=== PATIENT | male | born 1960 | race Caucasian/White ===

== ENCOUNTER → 2019-03-06 | Outpatient (CLI) | payer MEDICARE, BC ==
[2019-03-06 20:19] LABS: LDL Cholesterol,Calculated 85.4 mg/dL (0.0-131.0); VLDL Calculation 37.6 mg/dL (5.00-40.00)
== END | disposition home or self-care (01) ==
LOC: LABWHC1 10:17
PROVIDERS: ATTEND Nurse Practitioner Adult Health
DX: E78.2 Mixed hyperlipidemia (principal)
CPT/HCPCS: 36415; 80061; 84450; 84460

== ENCOUNTER → 2019-10-01 | Outpatient (CLI) | payer MEDICARE, BC ==
--- NOTE | 2019-10-01 14:11 | MR ---
EXAMINATION TYPE: MR abdomen wo/w con DATE OF EXAM: 10/01/2019 COMPARISON: Outside report dated August 16, 2019. HISTORY: Complicated cysts of the kidneys seen on the CT abdomen done the liver. Hospital. CONTRAST: Standard multiplanar, multisequence MRI departmental protocol utilizing 10 mL intravenous Gadavist ga dolinium contrast. FINDINGS: Emanating from the right lower pole the kidney there is a 1.4 x 1.9 cm T1 precontrast hyperintense le larisa without significant enhancement on early or delayed phases. There is minimal motion artifact thr ough this lesion on precontrast T1 weighted images. There are additional scattered cortical bilateral T2 hyperintense nonenhancing renal cysts, the largest on the left measuring 1.5 cm the largest on th e right measuring 1.0 cm. The known nephrolithiasis is better seen on CT. No hydronephrosis of either kidney. The liver is homogeneous in enhancement other than a small linear arterial portal shunt in the left h epatic lobe there is no intrahepatic biliary ductal dilatation. Mild diffuse signal dropout is seen o n out of phase imaging indicating mild degree hepatic steatosis. Gallbladder is unremarkable without cholelithiasis. The spleen, adrenal glands, and pancreas are of unremarkable enhancement and morpholo gy. There is no dilated large or small bowel. No adenopathy. Lung bases are well aerated. Degenerativ e disc disease is seen of the spine. IMPRESSION: 1. The indeterminate right renal lesion on the prior outside report of August 16, 2019 appears as a benign 1.9 cm lower pole hemorrhagic and/or proteinaceous cyst. There is minimal internal complexity on the T1 precontrast images, appearing as a probable motion artifact. Precautionary 6 month follow-u p ultrasound is recommended to ensure no interval growth. 2. Mild degree hepatic steatosis.
== END | disposition home or self-care (01) ==
LOC: RADMRIMAIN 11:55
PROVIDERS: ATTEND Emergency Medicine
DX: K76.0 Fatty (change of) liver, not elsewhere classified (principal)
CPT/HCPCS: 74183; A9585

== ENCOUNTER 2020-11-11 08:34 | Day surgery (SDC) | payer BC, MEDICARE ==
[2020-10-13 14:55] VITALS: BMI 28.7
--- NOTE | 2020-11-11 07:44 | P.GSHP ---
History of Present Illness H&P Date: 11/11/20 CHIEF COMPLAINT: Colon screen HISTORY OF PRESENT ILLNESS: The patient is a 60-year-old male who presents for colon screen. Lower endoscopy was offered for further evaluation and management. PAST MEDICAL HISTORY: Please see list. PAST SURGICAL HISTORY: Please see list. MEDICATIONS: Please see list. ALLERGIES: Please see list. SOCIAL HISTORY: No illicit drug use FAMILY HISTORY: No reports of Crohn disease or ulcerative colitis. REVIEW OF ORGAN SYSTEMS: CONSTITUTIONAL: No reports of fevers or chills. PHYSICAL EXAM: VITAL SIGNS: Stable GENERAL: Well-developed pleasant in no acute distress. HEENT: No scleral icterus. Extraocular movements grossly intact. Moist buccal mucosa. NECK: Supple without lymphadenopathy. CHEST: Unlabored respirations. Equal bilateral excursions. CARDIOVASCULAR: Regular rate and rhythm. Distal 2+ pulses. ABDOMEN: Soft, nontender, nondistended. MUSCULOSKELETAL: No clubbing, cyanosis, or edema. ASSESSMENT: 1. Colon screen. PLAN: 1. Recommend proceeding with a lower endoscopy Past Medical History Past Medical History: Atrial Fibrillation, Atrial Flutter, Coronary Artery Disease (CAD), Chest Pain / Angina, Hyperlipidemia, Myocardial Infarction ([place]), Osteoarthritis (OA), Skin Disorder, Sleep Apnea/CPAP/BIPAP Additional Past Medical History / Comment(s): "droopy eye", hx KIDNEY STONES, HEARING LOSS RT EAR.CHRONIC ,DDD,SPINAL STENOSIS, 3 HERNIATED DISC. no CPAP use d, ulcerative colitis, rash and flaky skin-cause unknown, Last Myocardial Infarction Date:: 2005 History of Any Multi-Drug Resistant Organisms: None Reported Past Surgical History: Adenoidectomy, Cardiac Ablation, Coronary Bypass/CABG, Heart Catheterization, Hernia Repair, Orthopedic Surgery, Tonsillectomy Additional Past Surgical History / Comment(s): cardiac ablation x 2, SX CHILD FOR UNDESCENDED TESTICLE, CABG-triple bypass, RT ROTATOR CUFF/TENDON SX, Umbilical hernia. rt cataract, rt eyelid surgery Past Anesthesia/Blood Transfusion Reactions: Previous Problems w/ Anesthesia Additional Past Anesthesia/Blood Transfusion Reaction / Comment(s): States "wakes up in surgery". Smoking Status: Former smoker - Past Family History Mother Family Medical History: Myocardial Infarction ([place]) Additional Family Medical History / Comment(s): AGE 62 FROM [place]... MOM'S DAD HAD [place] Father Family Medical History: Cancer Additional Family Medical History / Comment(s): . Sister(s) Family Medical History: Myocardial Infarction ([place]) Additional Family Medical History / Comment(s): AGE 43 FROM [place] Brother(s) Family Medical History: Coronary Artery Disease (CAD), CVA/TIA, Myocardial Infarction ([place]) Additional Family Medical History / Comment(s): AGE 42 HAD STROKE, AGE 45 HAD TRIPLE BYPASS Medications and Allergies Home Medications Medication Instructions Recorded Confirmed Type Atorvastatin [Lipitor] 80 mg PO HS 12/16/15 11/09/20 History HYDROcodone/APAP 10-325MG [[place] 1 tab PO Q6H PRN 12/16/15 11/09/20 History 10-325] Multivitamins, Thera [Multivitamin] 1 tab PO DAILY 09/19/16 11/09/20 History Aspirin [Adult Low Dose Aspirin EC] 81 mg PO DAILY 10/13/20 11/09/20 History Rivaroxaban [Xarelto] 20 mg PO DAILY 10/13/20 11/09/20 History Valsartan [Diovan] 40 mg PO QAM 10/13/20 11/09/20 History Amiodarone [Cordarone] 200 mg PO DAILY 11/09/20 11/09/20 History Fenofibrate Nanocrystallized 48 mg PO DAILY 11/09/20 11/09/20 History [Tricor] Metoprolol Succinate [Toprol XL] 50 mg PO BID 11/09/20 11/09/20 History Allergies Allergy/AdvReac Type Severity Reaction Status Date / Time morphine Allergy Rash/Hives/ Verified 11/09/20 10:34 ITCHING
[~2020-11-11 08:34] MED LIST: LACTATED RINGERS 1,000 ML IV SCH; LIDOCAINE 1% (10MG/ML) FOR IV START INTRADERMA PRN
[2020-11-11 09:02] VITALS: RESP 16; TEMP 97.8
[2020-11-11] MEDS ORDERED: MIDAZOLAM 2 MG/2 ML VIAL ONE (09:19)
[2020-11-11] MEDS ORDERED: LIDOCAINE 1% INJ 10MG/ML (20 ML MDV) ONE (09:19)
[2020-11-11] MEDS ORDERED: PROPOFOL 10 MG/ML 20 ML VIAL IV ONE (09:19)
--- NOTE | 2020-11-11 09:38 | P.PCN ---
Date of Procedure: 11/11/20 Description of Procedure: PREOPERATIVE DIAGNOSIS: Personal history colon polyps POSTOPERATIVE DIAGNOSIS: Sigmoid colon polyp OPERATION: Colonoscopy to the cecum, ileocecal valve and appendiceal orifice. Colonoscopy with cold forceps biopsy SURGEON: Yari Israel MD. ANESTHESIA: MAC. INDICATIONS: The patient is a 60-year-old male who presents for colonoscopy screening. Last colonoscopy less than 5 years ago with history of polyps. Benefits and risks were described and informed consent was obtained. DESCRIPTION OF PROCEDURE: The patient had undergone Suprep. He had been brought into the operating room and laid in the left lateral decubitus position. After adequate intravenous sedation, the rectum was examined with 2% lidocaine jelly. External hemorrhoids were encountered. The rectal tone was within normal limits. No lesions were palpated in the rectal vault. An Olympus colonoscope was advanced until the cecum, ileocecal valve and appendiceal orifice were clearly viewed. The prep was excellent. No scattered diverticulosis was encountered. A hyperplastic 3 mm polyp was removed using cold forceps biopsy of the sigmoid colon. No evidence of focal colitis was found. Retroflexion of the scope demonstrated grade 2 internal hemorrhoids without active bleeding or inflammation. The colon was desufflated. The patient had tolerated the procedure well. Withdrawal time was over 6 minutes. FINDINGS: Aronchick preparation quality scale 1 (1-5) Internal hemorrhoids, grade 2 External prolapsed hemorrhoids, grade 2 No arteriovenous malformations. A hyperplastic 3 mm polyp was removed using cold forceps biopsy of the sigmoid colon. No focal colitis. RECOMMENDATIONS: Lower endoscopy in 3 years, 2023 Plan - Discharge Summary Discharge Rx Participant: No New Discharge Prescriptions: Continue Atorvastatin [Lipitor] 80 mg PO HS HYDROcodone/APAP 10-325MG [[place] 10-325] 1 tab PO Q6H PRN PRN Reason: Pain Control Multivitamins, Thera [Multivitamin (formulary)] 1 tab PO DAILY Valsartan [Diovan] 40 mg PO QAM Rivaroxaban [Xarelto] 20 mg PO DAILY Aspirin [Adult Low Dose Aspirin EC] 81 mg PO DAILY Amiodarone [Cordarone] 200 mg PO DAILY Metoprolol Succinate [Toprol XL] 50 mg PO BID Fenofibrate Nanocrystallized [Tricor] 48 mg PO DAILY Discharge Medication List Atorvastatin [Lipitor] 80 mg PO HS 12/16/15 [History] HYDROcodone/APAP 10-325MG [[place] 10-325] 1 tab PO Q6H PRN 12/16/15 [History] Multivitamins, Thera [Multivitamin (formulary)] 1 tab PO DAILY 09/19/16 [History] Aspirin [Adult Low Dose Aspirin EC] 81 mg PO DAILY 10/13/20 [History] Rivaroxaban [Xarelto] 20 mg PO DAILY 10/13/20 [History] Valsartan [Diovan] 40 mg PO QAM 10/13/20 [History] Amiodarone [Cordarone] 200 mg PO DAILY 11/09/20 [History] Fenofibrate Nanocrystallized [Tricor] 48 mg PO DAILY 11/09/20 [History] Metoprolol Succinate [Toprol XL] 50 mg PO BID 11/09/20 [History] Follow up Appointment(s)/Referral(s): Yari Israel MD [STAFF PHYSICIAN] - As Needed Patient Instructions/Handouts: *Surgery [facility] - (Anesthesia) Endoscopy Discharge Instructions, Colorectal Polyps (DC) Activity/Diet/Wound Care/Special Instructions: RESUME BLOOD THINNER NOV 14 Repeat colonoscopy 5 years, 2025 Discharge Disposition: HOME SELF-CARE
[2020-11-11 10:01] VITALS: BP 114/62; PULSE 80
== END 2020-11-11 10:39 | disposition home or self-care (01) ==
LOC: ORWHC2ENDO 08:34
PROVIDERS: ATTEND Surgery Plastic and Reconstructive Surgery
DX: Z12.11 Encounter for screening for malignant neoplasm of colon (principal); D12.5 Benign neoplasm of sigmoid colon; K64.1 Second degree hemorrhoids; I48.91 Unspecified atrial fibrillation; I48.92 Unspecified atrial flutter; I25.10 Atherosclerotic heart disease of native coronary artery without angina pectoris; E78.5 Hyperlipidemia, unspecified; I25.2 Old myocardial infarction; M19.90 Unspecified osteoarthritis, unspecified site; F17.200 Nicotine dependence, unspecified, uncomplicated; I10 Essential (primary) hypertension; G47.33 Obstructive sleep apnea (adult) (pediatric); Z99.89 Dependence on other enabling machines and devices; Z87.442 Personal history of urinary calculi; H91.91 Unspecified hearing loss, right ear; K52.9 Noninfective gastroenteritis and colitis, unspecified; R21 Rash and other nonspecific skin eruption; Z95.1 Presence of aortocoronary bypass graft; Z90.89 Acquired absence of other organs; Z98.890 Other specified postprocedural states; Z98.41 Cataract extraction status, right eye; Z82.49 Family history of ischemic heart disease and other diseases of the circulatory system; Z80.9 Family history of malignant neoplasm, unspecified; Z82.3 Family history of stroke; Z79.82 Long term (current) use of aspirin; Z79.891 Long term (current) use of opiate analgesic; Z79.899 Other long term (current) drug therapy; Z88.5 Allergy status to narcotic agent
CPT/HCPCS: 88305; 45380; J2250; J2001; J2704

== ENCOUNTER 2020-12-01 06:37 | Day surgery (SDC) | payer MEDICARE ==
[~2020-12-01 06:37] MED LIST changes: -LACTATED RINGERS 1,000 ML IV SCH; -LIDOCAINE 1% (10MG/ML) FOR IV START INTRADERMA PRN; +SODIUM CHLORIDE 0.9% 1,000 ML IV SCH
[2020-12-01] MEDS ORDERED: PROPOFOL 10 MG/ML 20 ML VIAL IV ONE (07:46)
[2020-12-01] MEDS ORDERED: LIDOCAINE 1% INJ 10MG/ML (20 ML MDV) ONE (07:46)
[2020-12-01] MEDS ORDERED: BENZOCAINE SPRAY 1 CAN MUCOUS MEM ONE ×2 (07:50→07:59)
[2020-12-01] MEDS ORDERED: SODIUM CHLORIDE 0.9% 1,000 ML IV SCH (08:15)
[2020-12-01] MEDS ORDERED: RIVAROXABAN 20 MG TAB PO STA (08:17)
[2020-12-01 08:26] VITALS: TEMP 98
[2020-12-01] MEDS ORDERED: AMIODARONE 200 MG TAB PO SCH (09:00)
[2020-12-01] MEDS ORDERED: RIVAROXABAN 20 MG TAB PO SCH (09:00)
[2020-12-01] MEDS ORDERED: FENOFIBRATE NANOCRYSTALLIZED 48 MG PO SCH (09:00)
[2020-12-01] MEDS ORDERED: METOPROLOL SUCCINATE (ER) 50 MG TAB.ER.24H PO SCH (09:00)
[2020-12-01] MEDS ORDERED: ASPIRIN 81 MG PO SCH (09:00)
[2020-12-01] MEDS ORDERED: VALSARTAN 40 MG TAB PO SCH (09:00)
--- NOTE | 2020-12-01 09:05 | CE ---
CARDIAC ELECTROPHYSIOLOGY REPORT CARDIOVERSION PROCEDURE NOTE: PROCEDURE: Cardioversion. INDICATION: Atrial fibrillation. PROCEDURE: After explaining the procedure to the patient, its risks and the complications, after obtaining sedated state and performing transesophageal echocardiogram, a synchronized biphasic cardioversion using 200 joules and subsequently 250 joules was successful in restoring normal sinus rhythm. There was no immediate complication. YASIR / DANYELLN: [id number] /
[2020-12-01 09:39] VITALS: RESP 16
[2020-12-01 09:49] VITALS: BP 110/62; PULSE 61
[2020-12-01] MEDS ORDERED: HYDROcodone/APAP 10-325MG 1 EACH TAB PO ONE (09:57)
[2020-12-01] MEDS ORDERED: HYDROcodone/APAP 10-325MG 1 EACH TAB ONE (10:05)
--- NOTE | 2020-12-01 10:11 | ECHOT ---
TRANSESOPHAGEAL ECHOCARDIOGRAM INDICATION: Evaluation left atrial appendage. PROCEDURE: After explaining the procedure to the patient, its risks and the complications, blood pressure, heart rate, O2 saturation were monitored. The throat was sprayed with Cetacaine. He received sedation per the anesthesia department. The probe was introduced in the esophagus without difficulty. Images were obtained. Following that, the probe was removed. There was no immediate complication. FINDINGS: Left atrial size is dilated. Left atrial appendage is normal. Left ventricular size and systolic function normal. The aortic valve, mitral valve and tricuspid valve are normal. Descending thoracic aorta appears to be normal. Contrast bubble study revealed no evidence of shunting across the interatrial septum. No pericardial effusion was noted. Doppler pulse and color Doppler obtained and revealed moderate severe mitral with multiple jets and moderate tricuspid regurgitation. There was no shunting by color Doppler study. CONCLUSION: 1. Dilated left atrium with normal appearance of left atrial appendage. 2. Normal left ventricular size and systolic function. 3. Moderate severe mitral regurgitation with multiple jets. 4. Moderate tricuspid regurgitation. 5. Normal appearance of the descending thoracic aorta. 6. No shunting across the interatrial septum. MMODL / IJN: [id number] /
[2020-12-01] MEDS ORDERED: ATORVASTATIN 80 MG TAB PO SCH (21:00)
== END 2020-12-01 10:08 | disposition home or self-care (01) ==
LOC: CATHCVL 06:37
PROVIDERS: ATTEND Internal Medicine Interventional Cardiology
DX: I48.11 Longstanding persistent atrial fibrillation (principal); I08.1 Rheumatic disorders of both mitral and tricuspid valves; I10 Essential (primary) hypertension; E78.2 Mixed hyperlipidemia; F17.210 Nicotine dependence, cigarettes, uncomplicated; E11.9 Type 2 diabetes mellitus without complications; E66.9 Obesity, unspecified; R60.0 Localized edema; I25.2 Old myocardial infarction; G47.33 Obstructive sleep apnea (adult) (pediatric); M48.00 Spinal stenosis, site unspecified; Z95.1 Presence of aortocoronary bypass graft; Z79.899 Other long term (current) drug therapy; Z79.82 Long term (current) use of aspirin; Z79.01 Long term (current) use of anticoagulants; Z88.5 Allergy status to narcotic agent; Z68.30 Body mass index [BMI] 30.0-30.9, adult; Z99.89 Dependence on other enabling machines and devices; Z79.891 Long term (current) use of opiate analgesic; Z98.890 Other specified postprocedural states; Z90.89 Acquired absence of other organs; Z82.49 Family history of ischemic heart disease and other diseases of the circulatory system
CPT/HCPCS: 93312; 93320; 93325; 92960; J2001; J2704

== ENCOUNTER 2021-01-04 08:55 | Inpatient (IN) | payer MEDICARE ==
[2021-01-04] MEDS ORDERED: METOPROLOL SUCCINATE (ER) 50 MG TAB.ER.24H PO STA (17:24)
[2021-01-04] MEDS ORDERED: DOFETILIDE 250 MCG CAP PO STA (17:28)
[2021-01-04] MEDS: SPIRONOLACTONE 25 MG TAB PO SCH (18:06)
[2021-01-04] MEDS: MAGNESIUM OXIDE 400 MG TAB PO SCH (18:06)
[2021-01-04] MEDS: RIVAROXABAN 20 MG TAB PO SCH (18:06)
[2021-01-04 19:06] LABS: ALT 41 U/L (4-49); AST 39 U/L (17-59); African American GFR (CKD) >90 (>60 ml/min/1.73 sqM); Albumin 3.9 g/dL (3.5-5.0); Alkaline Phosphatase 40 U/L (38-126); Anion Gap 7 mmol/L; Blood Urea Nitrogen 21 mg/dL (9-20); Calcium 9.5 mg/dL (8.4-10.2); Carbon Dioxide 25 mmol/L (22-30); Chloride 108 mmol/L (98-107); Glucose 83 mg/dL (74-99); Magnesium 1.9 mg/dL (1.6-2.3); Non-African American GFR(CKD) 80 (>60 ml/min/1.73 sqM); Potassium 4.5 mmol/L (3.5-5.1); Sodium 140 mmol/L (137-145); Total Bilirubin 0.4 mg/dL (0.2-1.3); Total Protein 6.6 g/dL (6.3-8.2)
[2021-01-05] MEDS ORDERED: DOFETILIDE 250 MCG CAP PO ONE (06:00)
[2021-01-05 07:53] LABS: African American GFR (CKD) >90 (>60 ml/min/1.73 sqM); Anion Gap 6 mmol/L; Blood Urea Nitrogen 21 mg/dL (9-20); Calcium 9.3 mg/dL (8.4-10.2); Carbon Dioxide 21 mmol/L (22-30); Chloride 111 mmol/L (98-107); Glucose 94 mg/dL (74-99); Non-African American GFR(CKD) 87 (>60 ml/min/1.73 sqM); Potassium 4.4 mmol/L (3.5-5.1); Sodium 138 mmol/L (137-145)
[2021-01-05] MEDS ORDERED: METOPROLOL SUCCINATE (ER) 50 MG TAB.ER.24H PO SCH (09:00)
[2021-01-05] MEDS: MAGNESIUM OXIDE 400 MG TAB PO SCH (09:32)
[2021-01-05] MEDS: METOPROLOL SUCCINATE (ER) 25 MG TAB.ER.24H PO SCH (09:32)
[2021-01-05] MEDS: FENOFIBRATE 160 MG TAB PO SCH (09:32)
[2021-01-05] MEDS: ATORVASTATIN 80 MG TAB PO SCH (09:32)
[2021-01-05] MEDS: ASPIRIN 81 MG PO SCH (09:32)
[2021-01-05] MEDS: SPIRONOLACTONE 25 MG TAB PO SCH (09:33)
[2021-01-05] MEDS: VALSARTAN 40 MG TAB PO SCH (09:33)
--- NOTE | 2021-01-05 13:22 | P.PN ---
Subjective This is a pleasant 60-year-old male who is brought into the hospital for dofetilide initiation. He has a history of persistent atrial fibrillation that has failed electrical cardioversion as well as amiodarone therapy. He is significantly symptomatic and cannot lay flat while in atrial fibrillation. He is seen and examined resting comfortably in no acute distress. He continues to be in atrial fibrillation at this time with no evidence of organization of his rhythm. Blood pressure 132/77 heart rate 54 afebrile maintaining oxygen saturation on room air. Laboratory data reviewed, sodium 138, potassium 4.4 and creatinine 0.94. GENERAL: Well-appearing, well-nourished and in no acute distress. NECK: Supple without JVD or thyromegaly. LUNGS: Breath sounds clear to auscultation bilaterally. Respiration equal and unlabored. No wheezes, rales or rhonchi. HEART: Irregular rate and rhythm with systolic ejection murmur at the base, no rubs or gallops. S1 and S2 heard. EXTREMITIES: Normal range of motion, no edema. No clubbing or cyanosis. Peripheral pulses intact. ASSESSMENT Chronic persistent atrial fibrillation PLAN Increase dofetilide to 500 mg BID, first dose tonight. Obtain EKG 3 hours after dofetilide administration. Repeat BMP in the morning. Ongoing telemetry monitoring. Obtain EKG if he converts to sinus mechanism. Plan for cardioversion if he does not convert before that time. Nurse Practitioner note has been reviewed, I agree with a documented findings and plan of care. Patient was seen and examined. Objective - Vital Signs Vital signs: Vital Signs Temp 98.1 F 01/05/21 11:12 Pulse 54 L 01/05/21 11:12 Resp 16 01/05/21 11:12 BP 132/77 01/05/21 11:12 Pulse Ox 98 01/05/21 11:12 Intake & Output 01/04/21 01/05/21 01/05/21 18:59 06:59 18:59 Intake Total 540 240 Balance 540 240 Weight 99.8 kg 98 kg Intake: Oral 540 240 Other: Voiding Method Toilet Toilet # Voids 1 - Labs CBC & Chem 7: 01/05/21 06:32 Labs: Abnormal Lab Results - Last 24 Hours (Table) 01/04/21 01/05/21 Range/Units 17:52 06:32 Chloride 108 H 111 H (98-107) mmol/L Carbon Dioxide 21 L (22-30) mmol/L BUN 21 H 21 H (9-20) mg/dL
[2021-01-05] MEDS: RIVAROXABAN 20 MG TAB PO SCH (17:57)
[2021-01-05] MEDS: DOFETILIDE 500 MCG CAP PO SCH (17:57)
[2021-01-06] MEDS ORDERED: MAGNESIUM SULFATE-D5W PMX 1 GM in DEXTROSE/WATER 1 100ML.BAG IVPB ONE (03:15)
[2021-01-06] MEDS: DOFETILIDE 500 MCG CAP PO SCH ×2 (06:05→18:02)
[2021-01-06] MEDS: ASPIRIN 81 MG PO SCH (08:44)
[2021-01-06] MEDS: SPIRONOLACTONE 25 MG TAB PO SCH (08:45)
[2021-01-06] MEDS: FENOFIBRATE 160 MG TAB PO SCH (08:45)
[2021-01-06] MEDS: MAGNESIUM OXIDE 400 MG TAB PO SCH (08:45)
[2021-01-06] MEDS: ATORVASTATIN 80 MG TAB PO SCH (08:45)
[2021-01-06] MEDS: VALSARTAN 40 MG TAB PO SCH (08:45)
[2021-01-06] MEDS: METOPROLOL SUCCINATE (ER) 25 MG TAB.ER.24H PO SCH (08:45)
[2021-01-06 10:25] LABS: African American GFR (CKD) >90 (>60 ml/min/1.73 sqM); Anion Gap 7 mmol/L; Blood Urea Nitrogen 21 mg/dL (9-20); Calcium 9.6 mg/dL (8.4-10.2); Carbon Dioxide 26 mmol/L (22-30); Chloride 107 mmol/L (98-107); Glucose 122 mg/dL (74-99); Non-African American GFR(CKD) 81 (>60 ml/min/1.73 sqM); Potassium 4.4 mmol/L (3.5-5.1); Sodium 140 mmol/L (137-145)
--- NOTE | 2021-01-06 12:29 | P.PN ---
Progress Note - Text Patient underwent dofetilide 500 g twice daily Absolute QT interval of about 480-490 ms Minimal organization of atrial fibrillation on dofetilide Mildly bradycardic in the dose of beta blockers has been reduced Significantly dilated left atrium Potassium 4.4, magnesium 1.9, BUN and creatinine stable at 21 and 1.0 Plan Electrical cardioversion tomorrow Continue monitoring the QT intervals on dofetilide
[2021-01-06] MEDS: RIVAROXABAN 20 MG TAB PO SCH (18:02)
[2021-01-07] MEDS: DOFETILIDE 500 MCG CAP PO SCH ×2 (05:59→17:59)
[2021-01-07] MEDS ORDERED: SODIUM CHLORIDE 0.9% 1,000 ML IV SCH (06:00)
[2021-01-07] MEDS: ASPIRIN 81 MG PO SCH (08:44)
[2021-01-07] MEDS: MAGNESIUM OXIDE 400 MG TAB PO SCH (08:44)
[2021-01-07] MEDS: FENOFIBRATE 160 MG TAB PO SCH (08:44)
[2021-01-07] MEDS: SPIRONOLACTONE 25 MG TAB PO SCH (08:45)
[2021-01-07] MEDS: VALSARTAN 40 MG TAB PO SCH (08:45)
[2021-01-07] MEDS: ATORVASTATIN 80 MG TAB PO SCH (08:45)
[2021-01-07] MEDS: METOPROLOL SUCCINATE (ER) 25 MG TAB.ER.24H PO SCH (08:45)
[2021-01-07 10:30] LABS: African American GFR (CKD) >90 (>60 ml/min/1.73 sqM); Anion Gap 6 mmol/L; Blood Urea Nitrogen 22 mg/dL (9-20); Calcium 9.6 mg/dL (8.4-10.2); Carbon Dioxide 23 mmol/L (22-30); Chloride 108 mmol/L (98-107); Glucose 87 mg/dL (74-99); Magnesium 1.9 mg/dL (1.6-2.3); Non-African American GFR(CKD) 89 (>60 ml/min/1.73 sqM); Potassium 4.7 mmol/L (3.5-5.1); Sodium 137 mmol/L (137-145)
--- NOTE | 2021-01-07 14:26 | P.PN ---
Subjective This is a pleasant 60-year-old male who is brought into the hospital for dofetilide initiation. He has a history of persistent atrial fibrillation that has failed electrical cardioversion as well as amiodarone therapy. He is significantly symptomatic and cannot lay flat while in atrial fibrillation. He is seen and examined resting comfortably in no acute distress. He continues to be in atrial fibrillation at this time with no evidence of organization of his rhythm. Blood pressure 132/77 heart rate 54 afebrile maintaining oxygen saturation on room air. Laboratory data reviewed, sodium 138, potassium 4.4 and creatinine 0.94. 01/07/2021 Patient was seen and examined resting comfortably sitting up in the recliner in no acute distress. Yesterday he converted to sinus mechanism. EKG is reviewed and his QT interval is approximately 430ms. Blood pressure 101/63 heart rate 67 afebrile maintaining oxygen saturation on room air. Laboratory data reviewed, sodium 138, potassium 4.7, creatinine 0.92 and magnesium 1.9. GENERAL: Well-appearing, well-nourished and in no acute distress. NECK: Supple without JVD or thyromegaly. LUNGS: Breath sounds clear to auscultation bilaterally. Respiration equal and unlabored. No wheezes, rales or rhonchi. HEART: Regular rate and rhythm with systolic ejection murmur at the base, no rubs or gallops. S1 and S2 heard. EXTREMITIES: Normal range of motion, no edema. No clubbing or cyanosis. Peripheral pulses intact. ASSESSMENT Chronic persistent atrial fibrillation, currently maintaining sinus mechanism PLAN Continue dofetilide 500 mg twice a day. Obtain EKG 3 hours after dofetilide administration. Repeat BMP in the morning. Ongoing telemetry monitoring. Expect discharge tomorrow if he continues to maintain sinus mechanism and tolerate dofetilide. Nurse Practitioner note has been reviewed, I agree with a documented findings and plan of care. Patient was seen and examined. Objective - Vital Signs Vital signs: Vital Signs Temp 96.7 F L 01/07/21 13:07 Pulse 67 01/07/21 13:07 Resp 12 01/07/21 13:07 BP 101/63 01/07/21 08:40 Pulse Ox 96 01/07/21 13:07 Intake & Output 01/06/21 01/07/21 01/07/21 18:59 06:59 18:59 Intake Total 300 Balance 300 Weight 93.36 kg 97 kg Intake: Oral 300 Other: Voiding Method Toilet Toilet Toilet # Voids 2 1 2 - Labs CBC & Chem 7: 01/07/21 08:55 Labs: Abnormal Lab Results - Last 24 Hours (Table) 01/07/21 Range/Units 08:55 Chloride 108 H (98-107) mmol/L BUN 22 H (9-20) mg/dL
[2021-01-07] MEDS: RIVAROXABAN 20 MG TAB PO SCH (17:59)
[2021-01-08] MEDS: DOFETILIDE 500 MCG CAP PO SCH (06:19)
[2021-01-08] MEDS: FENOFIBRATE 160 MG TAB PO SCH (09:19)
[2021-01-08] MEDS: ATORVASTATIN 80 MG TAB PO SCH (09:19)
[2021-01-08] MEDS: ASPIRIN 81 MG PO SCH (09:19)
[2021-01-08] MEDS: MAGNESIUM OXIDE 400 MG TAB PO SCH (09:19)
[2021-01-08] MEDS: METOPROLOL SUCCINATE (ER) 25 MG TAB.ER.24H PO SCH (09:19)
[2021-01-08] MEDS: SPIRONOLACTONE 25 MG TAB PO SCH (09:19)
[2021-01-08] MEDS: VALSARTAN 40 MG TAB PO SCH (09:20)
[2021-01-08 09:25] LABS: Calcium 9.9 mg/dL (8.4-10.2); Magnesium 1.8 mg/dL (1.6-2.3); Potassium 5.2 mmol/L (3.5-5.1)
[2021-01-08 09:35] VITALS: BP 131/74; RESP 16; TEMP 98.6
[2021-01-08 10:46] VITALS: PULSE 54
--- NOTE | 2021-01-08 12:57 | P.DS ---
Providers Date of admission: 01/04/21 16:01 Attending physician: Victor M Ashley Primary care physician: Hema Gomez Assessment: Please see full dictation by the nurse practitioner This is's discharge summary. Patient has persistent atrial fibrillation with a significantly dilated left atrium of about 6 cm After detailed discussion was brought in for initiation of dofetilide The first start with 250 g twice daily and after 2 doses increased to 500 g twice daily A few doses later he chemically cardioverted on 500 g twice daily to sinus rhythm His absolute QT interval is around 460 ms and has stayed stable between 442 460 ms He has not had any ventricular arrhythmias The dose of beta blockers was reduced to 25 mg by mouth daily. He had nighttime pauses and daytime bradycardia in the 50s while in atrial fibrillation In sinus rhythm he feels he is able to walk a longer distance feels a lot more comfortable less short of breath with more energy He's been walking around in the hallway and he can feel the difference Blood pressures in the normal range heart rates in the 50s and 60s during sinus rhythm Sounds are clear lungs are clear no rhonchi no crackles No murmurs no gallops no rub Abdomen soft Extremities warm No JVD Impression Symptomatic persistent atrial fibrillation despite adequate rate control Significantly enlarged left atrium of 6 cm Successful chemical cardioversion with 500 g of dofetilide as an inpatient Absolute QT interval remained stable between 4 4460 ms Electrolytes are normal BUN and creatinine is stable and normal Plan Add a detailed discussion with him and his . A 30 minute education was given by myself for dofetilide use Does and don'ts were explained very carefully Drug interactions, rule out renal function, rolloff hypokalemia and hypomagnesemia was discussed in detail a wrist identifier was recommended He will see Dr. Rush in about 2-3 weeks I will see him again in about 4 months A BMP and magnesium will be done prior to that Dofetilide was sent to his pharmacy and he received a 1 week supply New medications include spironolactone and magnesium oxide The dose of beta blockers has been reduced to metoprolol succinate 25 g by mouth daily Anticoagulation continues lifelong Other diagnoses continue unchanged He is not on any medications that would have a significant interaction with dofetilide Patient Condition at Discharge: Stable Plan - Discharge Summary Discharge Rx Participant: Yes New Discharge Prescriptions: New Dofetilide [Tikosyn] 500 mcg PO Q12HR@0600,1800 #180 cap Spironolactone [Aldactone] 25 mg PO DAILY #90 tab Magnesium Oxide [Mag-Ox] 400 mg PO DAILY #90 tab Metoprolol Succinate (ER) [Toprol XL] 25 mg PO DAILY #90 tab.er.24h Continue Atorvastatin [Lipitor] 80 mg PO HS HYDROcodone/APAP 10-325MG [[place] 10-325] 1 tab PO Q6H PRN PRN Reason: Pain Control Multivitamins, Thera [Multivitamin (formulary)] 1 tab PO DAILY Rivaroxaban [Xarelto] 20 mg PO HS Aspirin [Adult Low Dose Aspirin EC] 81 mg PO DAILY Zinc 50 mg PO DAILY Fenofibrate [Lofibra] 160 mg PO DAILY Valsartan 80 mg PO DAILY Econazole 1% Cream [Spectazole] 1 applic TOPICAL BID PRN PRN Reason: Rash Vitamin B Complex W/C 1 tab PO DAILY Clotrimazole [Clotrimazole AF] 1 applic TOPICAL BID PRN PRN Reason: Rash Discontinued Amiodarone [Cordarone] 200 mg PO DAILY Metoprolol Succinate [Toprol XL] 50 mg PO BID Magnesium Oxide [[place]] 500 mg PO DAILY Discharge Medication List Atorvastatin [Lipitor] 80 mg PO HS 12/16/15 [History] HYDROcodone/APAP 10-325MG [[place] 10-325] 1 tab PO Q6H PRN 12/16/15 [History] Multivitamins, Thera [Multivitamin (formulary)] 1 tab PO DAILY 09/19/16 [History] Aspirin [Adult Low Dose Aspirin EC] 81 mg PO DAILY 10/13/20 [History] Rivaroxaban [Xarelto] 20 mg PO HS 10/13/20 [History] Clotrimazole [Clotrimazole AF] 1 applic TOPICAL BID PRN 01/04/21 [History] Econazole 1% Cream [Spectazole] 1 applic TOPICAL BID PRN 01/04/21 [History] Fenofibrate [Lofibra] 160 mg PO DAILY 01/04/21 [History] Valsartan 80 mg PO DAILY 01/04/21 [History] Vitamin B Complex W/C 1 tab PO DAILY 01/04/21 [History] Zinc 50 mg PO DAILY 01/04/21 [History] Dofetilide [Tikosyn] 500 mcg PO Q12HR@0600,1800 #180 cap 01/08/21 [Rx] Magnesium Oxide [Mag-Ox] 400 mg PO DAILY #90 tab 01/08/21 [Rx] Metoprolol Succinate (ER) [Toprol XL] 25 mg PO DAILY #90 tab.er.24h 01/08/21 [Rx] Spironolactone [Aldactone] 25 mg PO DAILY #90 tab 01/08/21 [Rx] Follow up Appointment(s)/Referral(s): Victor M Ashley MD [STAFF PHYSICIAN] - 6 Weeks (See Dr. Ashley in 3-4 months. Office to call with date and time.) Bailey Rush MD [STAFF PHYSICIAN] - 2 Weeks (Cardiology office to call patient with appointment date and time.) Patient Instructions/Handouts: A-fib (Atrial Fibrillation) (DC)
== END 2021-01-08 13:30 | disposition home or self-care (01) | DRG 310 ==
LOC: 3SCARD 16:01
PROVIDERS: ADMIT Internal Medicine Clinical Cardiac Electrophysiology; ATTEND Internal Medicine Clinical Cardiac Electrophysiology
DX: I48.19 Other persistent atrial fibrillation (principal)
CPT/HCPCS: 80048; 80053; 83735; 84443

== ENCOUNTER 2021-04-02 15:50 | Emergency (ER) | payer MEDICARE ==
[2021-04-02 15:59] VITALS: TEMP 98
[2021-04-02] MEDS ORDERED: SODIUM CHLORIDE 0.9% 1,000 ML IV STA (16:02)
[2021-04-02] MEDS ORDERED: ONDANSETRON 4 MG/2 ML VIAL IVP STA (16:02)
--- NOTE | 2021-04-02 16:26 | ED ---
General Adult HPI - General Chief complaint: Nausea/Vomiting/Diarrhea Stated complaint: AFIB, N/V/D, fever Time Seen by Provider: 04/02/21 16:01 Source: patient Mode of arrival: ambulatory Limitations: no limitations - History of Present Illness Initial comments: Dictation was produced using alike dictation software. please excuse any grammatical, word or spelling errors. Chief Complaint: 60-year-old male multiple comorbidities presents with fevers, diarrhea History of Present Illness: Is a 60-year-old male states that for the last several days he's had fever and diarrhea. States that his diarrhea is nonbilious not bloody. Denies any recent travel. No concerns of food poisoning or concerns of ingestion of still contaminated foods. States that he was seen to [facility] recently for A. fib and was discharged home. 2 hours ago patient had another bout of diarrhea brought him to come to the emergency department. States he has some pain in the superpubic area. He does have high fevers. No obvious sick contacts. He hasn't taken antidiarrhea medicines. Sternal hydrate himself at home. The ROS documented in this emergency department record has been reviewed and confirmed by me. Those systems with pertinent positive or negative responses have been documented in the HPI. All other systems are other negative and/or noncontributory. PHYSICAL EXAM: General Impression: Alert and oriented x3, not in acute distress HEENT: Normocephalic atraumatic, extra-ocular movements intact, pupils equal and reactive to light bilaterally, dry mucous membranes Cardiovascular: Heart regular rate and rhythm Chest: Able to complete full sentences, no retractions, no tachypnea Abdomen: abdomen soft, mild tenderness to the suprapubic space. No pain in McBurney's, not in his palpation of the left lower quadrant. Negative Rodriguez sign, non-distended, no organomegaly Musculoskeletal: Pulses present and equal in all extremities, no peripheral edema Motor: no focal deficits noted Neurological: CN II-XII grossly intact, no focal motor or sensory deficits noted Skin: Intact with no visualized rashes Psych: Normal affect and mood ED course: 60-year-old male presents emergency department for suprapubic abdominal pain and diarrhea. Vital signs upon arrival shows her to 110, rest of vital signs within acceptable limits. Medications reviewed. Laboratory evaluation obtained. CBC, metabolic panel obtained. There is mild non-gap acidosis likely secondary to phlebotomy lost. Troponin 0.040 which is around his baseline. Rest of his labs are unremarkable. There is concern for possible diverticulitis. Computed tomography scan of the abdomen and pelvis was ordered showing no acute processes. Patient reevaluated at bedside at 6 PM found to be stable medical condition. Repeat vitals are improved after IV hydr ation. Disposition options were discussed. He is agreeable for discharge. Told to follow-up with his primary care physician. Return precautions discussed. Patient likely suffered from gastroenteritis. EKG interpretation: Ventricular rate 103, sinus tachycardia, IA interval 164, QRS 90, QTC 492. No IA prolongation, no QTC prolongation, no ST or T-wave changes noted. EKG compared to 01/04/2021 showing no changes. Overall, this EKG is unremarkable - Related Data Home Medications Medication Instructions Recorded Confirmed Atorvastatin [Lipitor] 80 mg PO HS 12/16/15 01/04/21 HYDROcodone/APAP 10-325MG [[place] 1 tab PO Q6H PRN 12/16/15 01/04/21 10-325] Multivitamins, Thera [Multivitamin 1 tab PO DAILY 09/19/16 01/04/21 (formulary)] Aspirin [Adult Low Dose Aspirin EC] 81 mg PO DAILY 10/13/20 01/04/21 Rivaroxaban [Xarelto] 20 mg PO HS 10/13/20 01/04/21 Clotrimazole [Clotrimazole AF] 1 applic TOPICAL BID PRN 01/04/21 01/04/21 Econazole 1% Cream [Spectazole] 1 applic TOPICAL BID PRN 01/04/21 01/04/21 Fenofibrate [Lofibra] 160 mg PO DAILY 01/04/21 01/04/21 Vitamin B Complex W/C 1 tab PO DAILY 01/04/21 01/04/21 Zinc 50 mg PO DAILY 01/04/21 01/04/21 Previous Rx's Medication Instructions Recorded Dofetilide [Tikosyn] 500 mcg PO Q12HR@0600,1800 #180 cap 01/08/21 Magnesium Oxide [Mag-Ox] 400 mg PO DAILY #90 tab 01/08/21 Metoprolol Succinate (ER) [Toprol 25 mg PO DAILY #90 tab.er.24h 01/08/21 XL] Spironolactone [Aldactone] 12.5 mg PO DAILY tab 01/08/21 Valsartan 80 mg PO DAILY #90 tab 01/08/21 Allergies Allergy/AdvReac Type Severity Reaction Status Date / Time morphine Allergy Rash/Hives/ Verified 04/02/21 15:58 ITCHING Review of Systems ROS Statement: Those systems with pertinent positive or pertinent negative responses have been documented in the HPI. ROS Other: All systems not noted in ROS Statement are negative. Past Medical History Past Medical History: Atrial Fibrillation, Atrial Flutter, Coronary Artery Disease (CAD), Chest Pain / Angina, Hyperlipidemia, Myocardial Infarction ([place]), Osteoarthritis (OA), Skin Disorder, Sleep Apnea/CPAP/BIPAP Additional Past Medical History / Comment(s): "droopy eye", hx KIDNEY STONES, HEARING LOSS RT EAR.CHRONIC ,DDD,SPINAL STENOSIS, 3 HERNIATED DISC. no CPAP used, ulcerative colitis, rash and flaky skin-cause unknown, Last Myocardial Infarction Date:: 2005 History of Any Multi-Drug Resistant Organisms: None Reported Past Surgical History: Adenoidectomy, Cardiac Ablation, Coronary Bypass/CABG, Heart Catheterization, Hernia Repair, Orthopedic Surgery, Tonsillectomy Additional Past Surgical History / Comment(s): cardiac ablation x 2, SX CHILD FOR UNDESCENDED TESTICLE, CABG-triple bypass, RT ROTATOR CUFF/TENDON SX, Umbilical hernia. rt cataract, rt eyelid surgery Past Anesthesia/Blood Transfusion Reactions: Previous Problems w/ Anesthesia Additional Past Anesthesia/Blood Transfusion Reaction / Comment(s): States "wakes up in surgery". Past Psychological History: No Psychological Hx Reported Smoking Status: Former smoker Past Alcohol Use History: Rare Past Drug Use History: Marijuana - Past Family History Father Family Medical History: Cancer Additional Family Medical History / Comment(s): . Sister(s) Family Medical History: Myocardial Infarction ([place]) Additional Family Medical History / Comment(s): AGE 43 FROM [place] Brother(s) Family Medical History: Coronary Artery Disease (CAD), CVA/TIA, Myocardial Infarction ([place]) Additional Family Medical History / Comment(s): AGE 42 HAD STROKE, AGE 45 HAD TRIPLE BYPASS General Exam Limitations: no limitations Course Vital Signs 04/02/21 15:54 Temperature 98.0 F Pulse Rate 110 H Respiratory 18 Rate Blood Pressure 103/62 O2 Sat by Pulse 96 Oximetry Medical Decision Making - Lab Data Result diagrams: 04/02/21 16:33 04/02/21 16:33 Lab Results 04/02/21 04/02/21 04/02/21 Range/Units 16:33 16:33 16:33 WBC 5.4 (3.8-10.6) k/uL RBC 4.37 (4.30-5.90) m/uL Hgb 14.5 (13.0-17.5) gm/dL Hct 42.7 (39.0-53.0) % MCV 97.7 (80.0-100.0) fL MCH 33.2 (25.0-35.0) pg MCHC 33.9 (31.0-37.0) g/dL RDW 13.2 (11.5-15.5) % Plt Count 221 (150-450) k/uL MPV 6.8 Neutrophils % 78 % Lymphocytes % 9 % Monocytes % 10 % Eosinophils % 1 % Basophils % 1 % Neutrophils # 4.2 (1.3-7.7) k/uL Lymphocytes # 0.5 L (1.0-4.8) k/uL Monocytes # 0.6 (0-1.0) k/uL Eosinophils # 0.0 (0-0.7) k/uL Basophils # 0.0 (0-0.2) k/uL Sodium 134 L (137-145) mmol/L Potassium 5.9 H (3.5-5.1) mmol/L Chloride 107 (98-107) mmol/L Carbon Dioxide 17 L (22-30) mmol/L Anion Gap 10 mmol/L BUN 16 (9-20) mg/dL Creatinine 1.17 (0.66-1.25) mg/dL Est GFR (CKD-EPI)AfAm 77 (>60 ml/min/1.73 sqM) Est GFR (CKD-EPI)NonAf 66 (>60 ml/min/1.73 sqM) Glucose 162 H (74-99) mg/dL Calcium 9.3 (8.4-10.2) mg/dL Magnesium 2.0 (1.6-2.3) mg/dL Total Bilirubin 1.0 (0.2-1.3) mg/dL AST 77 H (17-59) U/L ALT 42 (4-49) U/L Alkaline Phosphatase 31 L (38-126) U/L Troponin I 0.040 H* (0.000-0.034) ng/mL Total Protein 6.8 (6.3-8.2) g/dL Albumin 3.8 (3.5-5.0) g/dL Disposition Clinical Impression: Diarrhea Disposition: HOME SELF-CARE Condition: Fair Instructions (If sedation given, give patient instructions): Acute Diarrhea (ED) Is patient prescribed a controlled substance at d/c from ED?: No Referrals: Hema Gomez MD [Primary Care Provider] - 1-2 days
[2021-04-02 16:57] LABS: Albumin 3.8 g/dL (3.5-5.0); Calcium 9.3 mg/dL (8.4-10.2); Potassium 5.9 mmol/L (3.5-5.1); Total Protein 6.8 g/dL (6.3-8.2)
[2021-04-02 16:58] LABS: Basophils % (A) 1 %; Eosinophils % (A) 1 %; HCT 42.7 % (39.0-53.0); HGB 14.5 gm/dL (13.0-17.5); Lymphocytes # (A) 0.5 k/uL (1.0-4.8); Lymphocytes % (A) 9 %; MCH 33.2 pg (25.0-35.0); MCHC 33.9 g/dL (31.0-37.0); MCV 97.7 fL (80.0-100.0); Mean Platelet Volume 6.8; Monocytes # (A) 0.6 k/uL (0-1.0); Monocytes % (A) 10 %; Neutrophils # (A) 4.2 k/uL (1.3-7.7); Neutrophils % (A) 78 %; Platelet Count 221 k/uL (150-450); RBC 4.37 m/uL (4.30-5.90); RDW 13.2 % (11.5-15.5); WBC 5.4 k/uL (3.8-10.6)
--- NOTE | 2021-04-02 17:55 | CT ---
EXAMINATION TYPE: CT abdomen pelvis w con DATE OF EXAM: 04/02/2021 COMPARISON: None HISTORY: Fever, nausea, vomiting and diarrhea. CT DLP: 1290.2 mGycm Automated exposure control for dose reduction was used. CONTRAST: Performed with IV Contrast, patient injected with 100 mL of Isovue 300. Images obtained from the diaphragm to the floor the pelvis with IV contrast. Lung bases are clear. There is no pleural effusion. Heart size is normal. There is no pericardial eff usion. Liver spleen pancreas stomach gallbladder appear normal. The bile ducts are not dilated. There is no adrenal mass. Kidneys show satisfactory contrast opacification. There is no hydronephrosi s. The ureters are not dilated. There is no retroperitoneal adenopathy. Appendix appears normal. The delayed images show normal renal excretion. There is 1 cm cortical cyst lower pole left kidney. There is 1.7 cm cortical cyst lower pole right kidney. The bladder distends smoothly. There is no inguinal hernia. There is no mesenteric edema. There is no ascites or free air. There is no bowel obstruction. There i s some fatty infiltration of the right colon consistent with lipomatosis. The lumbar vertebra show is very slight levoscoliosis. There is sclerotic changes at L1-2 and L2-3 wi th vacuum disc. There is no compression fracture. The bony pelvis is intact. The hip joints are intac t. Abdominal aorta is atheromatous. There is no hip dysplasia. IMPRESSION: Atherosclerotic vascular disease. Normal appendix. Colonic lipomatosis.
[2021-04-02 17:59] VITALS: BP 102/68; PULSE 90; RESP 16
== END 2021-04-02 18:10 | disposition home or self-care (01) ==
LOC: EC 15:50
DX: R19.7 Diarrhea, unspecified (principal); I48.91 Unspecified atrial fibrillation; I25.10 Atherosclerotic heart disease of native coronary artery without angina pectoris; E78.5 Hyperlipidemia, unspecified; I25.2 Old myocardial infarction; M19.90 Unspecified osteoarthritis, unspecified site; F12.90 Cannabis use, unspecified, uncomplicated; G47.33 Obstructive sleep apnea (adult) (pediatric); Z99.81 Dependence on supplemental oxygen; Z95.5 Presence of coronary angioplasty implant and graft; Z95.1 Presence of aortocoronary bypass graft; Z90.09 Acquired absence of other part of head and neck; Z87.891 Personal history of nicotine dependence; Z79.82 Long term (current) use of aspirin
CPT/HCPCS: 36415; 93005; 80053; 83735; 84484; 85025; 74177; 99284; 96360; Q9967

== ENCOUNTER 2021-04-04 13:02 | Observation (INO) | payer MEDICARE ==
[2021-04-04] MEDS ORDERED: SODIUM CHLORIDE 0.9% 1,000 ML IV STA ×2 (13:33)
[2021-04-04] MEDS ORDERED: PANTOPRAZOLE 40 MG/10 ML VIAL IVP STA (13:33)
[2021-04-04 14:09] LABS: HCT 42.9 % (39.0-53.0); HGB 14.7 gm/dL (13.0-17.5); MCHC 34.2 g/dL (31.0-37.0); MCV 96.4 fL (80.0-100.0); Platelet Count 268 k/uL (150-450); RBC 4.45 m/uL (4.30-5.90); RDW 13.2 % (11.5-15.5); WBC 4.5 k/uL (3.8-10.6)
--- NOTE | 2021-04-04 14:09 | ED ---
GI Bleed HPI - General Chief complaint: GI Bleed Stated complaint: blood in stool Time Seen by Provider: 04/04/21 13:10 Source: patient, RN notes reviewed Mode of arrival: wheelchair Limitations: no limitations - History of Present Illness Initial comments: This is a 60-year-old male who presents with complaints of diarrhea for about the last week since had nausea vomiting decreased oral intake week lightheaded hospice and palpitations does have a history of A. fib. This had a fever up to 103.5. This is now is third visit to the emergency department in the past for 5 days. He does state he has had blood in his stool last 2 days. MD complaint: other - Related Data Home Medications Medication Instructions Recorded Confirmed Atorvastatin [Lipitor] 80 mg PO HS 12/16/15 04/04/21 Multivitamins, Thera [Multivitamin 1 tab PO DAILY 09/19/16 04/04/21 (formulary)] Aspirin [Adult Low Dose Aspirin EC] 81 mg PO DAILY 10/13/20 04/04/21 Rivaroxaban [Xarelto] 20 mg PO HS 10/13/20 04/04/21 Fenofibrate [Lofibra] 160 mg PO DAILY 01/04/21 04/04/21 Vitamin B Complex W/C 1 tab PO DAILY 01/04/21 04/04/21 Zinc 50 mg PO DAILY 01/04/21 04/04/21 Previous Rx's Medication Instructions Recorded Dofetilide [Tikosyn] 500 mcg PO Q12HR@0600,1800 #180 cap 01/08/21 Magnesium Oxide [Mag-Ox] 400 mg PO DAILY #90 tab 01/08/21 Spironolactone [Aldactone] 12.5 mg PO DAILY tab 01/08/21 Valsartan 80 mg PO DAILY #90 tab 01/08/21 Allergies Allergy/AdvReac Type Severity Reaction Status Date / Time morphine Allergy Rash/Hives/ Verified 04/04/21 13:29 ITCHING Review of Systems ROS Statement: Those systems with pertinent positive or pertinent negative responses have been documented in the HPI. ROS Other: All systems not noted in ROS Statement are negative. Past Medical History Past Medical History: Atrial Fibrillation, Atrial Flutter, Coronary Artery Disease (CAD), Chest Pain / Angina, Hyperlipidemia, Myocardial Infarction ([place]), Osteoarthritis (OA), Skin Disorder, Sleep Apnea/CPAP/BIPAP Additional Past Medical History / Comment(s): "droopy eye", hx KIDNEY STONES, HEARING LOSS RT EAR.CHRONIC ,DDD,SPINAL STENOSIS, 3 HERNIATED DISC. no CPAP used, ulcerative colitis, rash and flaky skin-cause unknown, Last Myocardial Infarction Date:: 2005 History of Any Multi-Drug Resistant Organisms: None Reported Past Surgical History: Adenoidectomy, Cardiac Ablation, Coronary Bypass/CABG, Heart Catheterization, Hernia Repair, Orthopedic Surgery, Tonsillectomy Additional Past Surgical History / Comment(s): cardiac ablation x 2, SX CHILD FOR UNDESCENDED TESTICLE, CABG-triple bypass, RT ROTATOR CUFF/TENDON SX, Umbilical hernia. rt cataract, rt eyelid surgery Past Anesthesia/Blood Transfusion Reactions: Previous Problems w/ Anesthesia Additional Past Anesthesia/Blood Transfusion Reaction / Comment(s): States "wakes up in surgery". Past Psychological History: No Psychological Hx Reported Smoking Status: Former smoker Past Alcohol Use History: Rare Past Drug Use History: Marijuana - Past Family History Father Family Medical History: Cancer Additional Family Medical History / Comment(s): . Sister(s) Family Medical History: Myocardial Infarction ([place]) Additional Family Medical History / Comment(s): AGE 43 FROM [place] Brother(s) Family Medical History: Coronary Artery Disease (CAD), CVA/TIA, Myocardial Infarction ([place]) Additional Family Medical History / Comment(s): AGE 42 HAD STROKE, AGE 45 HAD TRIPLE BYPASS General Exam - General Exam Comments Initial Comments: This is a well-developed Limitations: no limitations General appearance: alert, in no apparent distress Head exam: Present: atraumatic, normocephalic, normal inspection Eye exam: Present: normal appearance, PERRL, EOMI. Absent: scleral icterus, conjunctival injection, periorbital swelling ENT exam: Present: mucous membranes dry Neck exam: Present: normal inspection. Absent: tenderness, meningismus, lymphadenopathy Respiratory exam: Present: normal lung sounds bilaterally. Absent: respiratory distress, wheezes, rales, rhonchi, stridor Cardiovascular Exam: Present: normal rhythm, tachycardia, normal heart sounds. Absent: systolic murmur, diastolic murmur, rubs, gallop, clicks GI/Abdominal exam: Present: soft, tenderness (For a mild tenderness palpation no guarding rebound masses or bruits), normal bowel sounds. Absent: distended, guarding, rebound, rigid Rectal exam: Present: heme (+) stool (Heme positive dark mucus no gross h emorrhoids) Extremities exam: Present: normal inspection, full ROM, normal capillary refill. Absent: tenderness, pedal edema, joint swelling, calf tenderness Back exam: Present: normal inspection Neurological exam: Present: alert, oriented X3, CN II-XII intact Psychiatric exam: Present: normal affect, normal mood Skin exam: Present: warm, dry, intact, normal color. Absent: rash Course Vital Signs 04/04/21 13:03 Temperature 98.2 F Pulse Rate 108 H Respiratory 16 Rate Blood Pressure 106/75 O2 Sat by Pulse 97 Oximetry Medical Decision Making - Medical Decision Making I did discuss findings with the patient and with Dr. Soni covering Dr. Gomez patient will be admitted consultation to GI. - Lab Data Result diagrams: 04/04/21 13:47 04/04/21 13:47 Lab Results 04/04/21 04/04/21 04/04/21 Range/Units 13:47 13:47 13:47 WBC 4.5 (3.8-10.6) k/uL RBC 4.45 (4.30-5.90) m/uL Hgb 14.7 (13.0-17.5) gm/dL Hct 42.9 (39.0-53.0) % MCV 96.4 (80.0-100.0) fL MCH 33.0 (25.0-35.0) pg MCHC 34.2 (31.0-37.0) g/dL RDW 13.2 (11.5-15.5) % Plt Count 268 (150-450) k/uL MPV 7.0 Neutrophils % (Manual) 49 % Band Neuts % (Manual) 7 % Lymphocytes % (Manual) 23 % Monocytes % (Manual) 20 % Eosinophils % (Manual) 1 % Neutrophils # (Manual) 2.50 (1.3-7.7) k/uL Lymphocytes # (Manual) 1.04 (1.0-4.8) k/uL Monocytes # (Manual) 0.90 (0-1.0) k/uL Eosinophils # (Manual) 0.05 (0-0.7) k/uL Nucleated RBCs 0 (0-0) /100 WBC Manual Slide Review Performed PT 11.4 (9.0-12.0) sec INR 1.1 (<1.2) APTT 23.6 (22.0-30.0) sec Sodium 131 L (137-145) mmol/L Potassium 4.2 (3.5-5.1) mmol/L Chloride 100 (98-107) mmol/L Carbon Dioxide 20 L (22-30) mmol/L Anion Gap 11 mmol/L BUN 17 (9-20) mg/dL Creatinine 0.90 (0.66-1.25) mg/dL Est GFR (CKD-EPI)AfAm >90 (>60 ml/min/1.73 sqM) Est GFR (CKD-EPI)NonAf >90 (>60 ml/min/1.73 sqM) Glucose 125 H (74-99) mg/dL Plasma Lactic Acid Felice (0.7-2.0) mmol/L Calcium 9.6 (8.4-10.2) mg/dL Magnesium 1.9 (1.6-2.3) mg/dL Total Bilirubin 0.3 (0.2-1.3) mg/dL AST 43 (17-59) U/L ALT 35 (4-49) U/L Alkaline Phosphatase 58 (38-126) U/L Creatine Kinase 146 (55-170) U/L Troponin I (0.000-0.034) ng/mL Total Protein 6.2 L (6.3-8.2) g/dL Albumin 3.5 (3.5-5.0) g/dL Lipase 77 (23-300) U/L Stool Occult Blood (Negative) 04/04/21 04/04/21 04/04/21 Range/Units 13:47 13:47 13:47 WBC (3.8-10.6) k/uL RBC (4.30-5.90) m/uL Hgb (13.0-17.5) gm/dL Hct (39.0-53.0) % MCV (80.0-100.0) fL MCH (25.0-35.0) pg MCHC (31.0-37.0) g/dL RDW (11.5-15.5) % Plt Count (150-450) k/uL MPV Neutrophils % (Manual) % Band Neuts % (Manual) % Lymphocytes % (Manual) % Monocytes % (Manual) % Eosinophils % (Manual) % Neutrophils # (Manual) (1.3-7.7) k/uL Lymphocytes # (Manual) (1.0-4.8) k/uL Monocytes # (Manual) (0-1.0) k/uL Eosinophils # (Manual) (0-0.7) k/uL Nucleated RBCs (0-0) /100 WBC Manual Slide Review PT (9.0-12.0) sec INR (<1.2) APTT (22.0-30.0) sec Sodium (137-145) mmol/L Potassium (3.5-5.1) mmol/L Chloride (98-107) mmol/L Carbon Dioxide (22-30) mmol/L Anion Gap mmol/L BUN (9-20) mg/dL Creatinine (0.66-1.25) mg/dL Est GFR (CKD-EPI)AfAm (>60 ml/min/1.73 sqM) Est GFR (CKD-EPI)NonAf (>60 ml/min/1.73 sqM) Glucose (74-99) mg/dL Plasma Lactic Acid Felice 1.0 (0.7-2.0) mmol/L Calcium (8.4-10.2) mg/dL Magnesium (1.6-2.3) mg/dL Total Bilirubin (0.2-1.3) mg/dL AST (17-59) U/L ALT (4-49) U/L Alkaline Phosphatase (38-126) U/L Creatine Kinase (55-170) U/L Troponin I <0.012 (0.000-0.034) ng/mL Total Protein (6.3-8.2) g/dL Albumin (3.5-5.0) g/dL Lipase (23-300) U/L Stool Occult Blood Positive (Negative) - Radiology Data Radiology results: report reviewed (Imaging reviewed no acute findings), image reviewed Disposition Clinical Impression: GI bleed, Dehydration, Gastroenteritis Disposition: ADMITTED IP TO THIS [facility] Condition: Fair Referrals: Hema Gomez MD [Primary Care Provider] - 1-2 days
[2021-04-04 14:11] LABS: ALT 35 U/L (4-49); AST 43 U/L (17-59); African American GFR (CKD) >90 (>60 ml/min/1.73 sqM); Albumin 3.5 g/dL (3.5-5.0); Alkaline Phosphatase 58 U/L (38-126); Anion Gap 11 mmol/L; Blood Urea Nitrogen 17 mg/dL (9-20); Calcium 9.6 mg/dL (8.4-10.2); Carbon Dioxide 20 mmol/L (22-30); Chloride 100 mmol/L (98-107); Creatine Kinase 146 U/L (55-170); Glucose 125 mg/dL (74-99); Lipase 77 U/L (23-300); Magnesium 1.9 mg/dL (1.6-2.3); Non-African American GFR(CKD) >90 (>60 ml/min/1.73 sqM); Potassium 4.2 mmol/L (3.5-5.1); Sodium 131 mmol/L (137-145); Total Bilirubin 0.3 mg/dL (0.2-1.3); Total Protein 6.2 g/dL (6.3-8.2)
[2021-04-04 14:21] LABS: INR 1.1 (<1.2); Partial Thromboplastin Time 23.6 sec (22.0-30.0); Prothrombin Time 11.4 sec (9.0-12.0)
[2021-04-04 14:25] LABS: Band Neutrophils % 7 %; Eosinophils # (M) 0.05 k/uL (0-0.7); Lymphocytes # (M) 1.04 k/uL (1.0-4.8); Neutrophils % (M) 49 %; Nucleated Red Blood Cells 0 /100 WBC (0-0); Total Cells Counted 100
--- NOTE | 2021-04-04 15:01 | XR ---
EXAM: Abdomen radiograph. HISTORY: Pain. TECHNIQUE: Supine AP view. COMPARISON: CT 04/02/2021. FINDINGS: There is borderline prominence of single small bowel loop in the right lower quadrant. However there is a nonobstructive bowel gas pattern. There are no pathologic calcifications. No acute osseous abnor mality seen. IMPRESSION: Borderline prominence of single bowel loop in the right lower quadrant. However nonobstructive gas pa ttern. Finding may relate to focal ileus.
[2021-04-04] MEDS ORDERED: ONDANSETRON 4 MG/2 ML VIAL IVP PRN (15:25)
[2021-04-04] MEDS ORDERED: NALOXONE 0.4 MG/ML 1 ML VIAL IV PRN (15:25)
[2021-04-04] MEDS: SODIUM CHLORIDE 0.9% 1,000 ML IV SCH (16:27)
[2021-04-04] MEDS: PANTOPRAZOLE 40 MG/10 ML VIAL IV SCH (20:06)
--- NOTE | 2021-04-04 21:37 | XR ---
EXAMINATION TYPE: XR chest 1V portable DATE OF EXAM: 04/04/2021 COMPARISON: 12/16/2015. HISTORY: CHF TECHNIQUE: Single frontal view of the chest is obtained. FINDINGS: There is no focal air space opacity, pleural effusion, or pneumothorax seen. The cardiac silhouette size is mildly enlarged. CABG seen. The osseous structures are intact. IMPRESSION: No acute process.
[2021-04-04] MEDS: IOPAMIDOL CONTRAST (ORAL USE) VIAL PO PRN ×2 (21:41→22:32)
--- NOTE | 2021-04-04 22:26 | HP ---
HISTORY AND PHYSICAL CHIEF COMPLAINTS: GI bleed and diarrhea. HISTORY OF PRESENT ILLNESS: This 60-year-old gentleman with a past medical history of multiple medical problems including history of atrial fibrillation, history of atrial flutter, CAD, hypertension, hyperlipidemia, being followed by Dr. Hema Gomez in the outpatient setting is complaining of diarrhea for the last one week. The patient had continuous diarrhea. Patient also was vomiting. The patient had diminished p.o. intake. Patient is feeling lightheaded. The patient also had a fever up to 103.5 and the patient also noted blood in the stools and the patient came to [facility] and was admitted to the hospital for further evaluation and treatment. Hemoglobin is found to be 14.7. Sodium is 133. Covid 19 is negative. The patient admitted to the hospital for further evaluation and treatment. KUB x-ray was noted. There is no history of fever, rigors, chills at this time. PAST MEDICAL HISTORY: History of atrial flutter fibrillation, CAD, chest pain, hyperlipidemia, myocardial infarction. MEDICATIONS: Medications prior to admission include home medications are: Zinc, vitamin B1, Valsartan, Aldactone, Xarelto, multivitamin, magnesium oxide, Lofibra, Tikosyn, Lipitor, aspirin. Doses are reviewed. ALLERGIES: MORPHINE. FAMILY HISTORY: History of cancer in the family. SOCIAL HISTORY: History of continued smoking. No history of alcohol intake. REVIEW OF SYSTEMS: ENT: Diminished vision. Diminished hearing. CARDIOVASCULAR system as mentioned earlier. RESPIRATION as mentioned earlier. GI: As mentioned earlier. no dysuria. NERVOUS SYSTEM: No numbness or weakness. ALLERGY/IMMUNOLOGY: No asthma or hayfever. MUSCULOSKELETAL: As mentioned earlier. HEMATOLOGY/ONCOLOGY: As mentioned earlier. ENDOCRINE: As mentioned earlier. CONSTITUTIONAL: As mentioned earlier. DERMATOLOGY: Negative. RHEUMATOLOGY: Negative. PSYCHIATRIC: As mentioned earlier. PHYSICAL EXAMINATION: Alert and oriented times three. Pulse 108 and irregular. Blood pressure 106/74, respirations 16, temperature 98.2, pulse ox 97% on room air. HEENT: Conjunctivae normal. NECK: No JVD. CARDIOVASCULAR: S1, S2 muffled, irregular. RESPIRATION: Breath sounds diminished in the bases. No rhonchi. No crackles. ABDOMEN: Soft, nontender. No mass palpable. LEGS: No edema. No swelling. NERVOUS SYSTEM: Higher functions as mentioned earlier. Moves all four limbs. No focal deficits. LYMPHATICS: No lymph nodes palpable in the neck, axillae or groin. SKIN: No ulcer, no rash and no bleeding. JOINTS: No active deforming arthropathy. LABS: At this time, WBC 4.1, hemoglobin 14.7, sodium 131, potassium 4.2. Other labs noted. ASSESSMENT: 1. Acute lower gastrointestinal bleeding for evaluation. 2. Diarrheal illness with fever, possible infectious diarrhea, rule out colitis. 3. Hyponatremia. 4. Atrial fibrillation. 5. History of atrial flutter/fibrillation. 6. History of coronary artery disease. 7. History of chest pain. 8. Hyperlipidemia. 9. Myocardial infarction. 10.History of degenerative joint disease. 11.History of sleep apnea. 12.History of droopy eyes. 13.History of nephrolithiasis. 14.History of adenoidectomy. 15.History of cardiac ablation. 16.History of coronary artery disease, coronary artery bypass grafting. 17.On anticoagulation. 18.Remote history of nicotine dependence. 19.Obesity with body mass index of 30.1. 20.FULL CODE. RECOMMENDATIONS AND DISCUSSION: In this 60-year-old gentleman who presented with multiple complex medical issues, we will monitor the patient closely, continue the current medications, management and symptomatic treatment. Otherwise at this time I recommend Gastroenterology and Cardiology evaluations. The exact etiology of the diarrhea is unknown. I would also recommend a CT scan of the abdomen and pelvis to rule out the possibility of colitis. We will obtain cultures. The patient is currently afebrile. We will continue to monitor. Depending upon the patient's CT scan findings and fever, we will initiate antibiotics if here is any possibility of any colitis. Overall prognosis guarded because of multiple complex medical issues. Further recommendations to follow. A copy of dictation being forwarded to Dr. Hema Gomez who is the primary physician. MMODL / IJN: [id number] /
--- NOTE | 2021-04-04 23:38 | CT ---
EXAMINATION TYPE: CT abdomen pelvis wo con DATE OF EXAM: 04/04/2021 COMPARISON: 04/02/2021 HISTORY: ABD PAIN CT DLP: 761.60 mGycm Automated exposure control for dose reduction was used. Images obtained from the diaphragm to the floor the pelvis with no contrast. Lung bases are clear. There is no pleural effusion. Heart size is normal. There is no pericardial eff usion. Liver spleen stomach pancreas gallbladder appear normal. The bile ducts are not dilated. There is no adrenal mass. Kidneys show normal size and contour. There are calcifications in both kidn eys. Some of these are vascular. There is 4 mm calculus lower pole left kidney. The ureters are not d ilated. There is no hydronephrosis. There is no retroperitoneal adenopathy. Bladder distends smoothly . There is no inguinal hernia. Abdominal aorta is atheromatous. There is no free fluid in the pelvis. There is no evidence of a pelvic mass. Appendix is posterior and appears normal. There is oral contr ast material in the small bowel. I see no evidence of a bowel obstruction. There is no mesenteric gavino ma. There is no ascites or free air. There appears to be some wall thickening of the long segment of distal ileum. This is seen on the lat eral aspect of the mid abdomen. There is some fatty infiltration of the ascending colon. The lumbar vertebra have fairly normal alignment. There is osteosclerosis in the L3 L2 L1 vertebral b odies with disc space narrowing and vacuum disc. There is no significant compression deformity. There is evidence for multilevel spinal stenosis. The bony pelvis is intact. Hip joints are intact. IMPRESSION: Compared to recent exam there is appearance of some wall thickening of the long segment of distal ile um that is suggestive of inflammatory bowel disease. This could be Crohn's disease. Atherosclerotic vascular disease. Nonobstructing renal calculi.
[2021-04-05] MEDS: SODIUM CHLORIDE 0.9% 1,000 ML IV SCH ×3 (00:35→16:07)
[2021-04-05 02:25] LABS: HCT 37.8 % (39.0-53.0); MCH 33.7 pg (25.0-35.0); MCHC 34.5 g/dL (31.0-37.0); MCV 97.8 fL (80.0-100.0); Mean Platelet Volume 6.9; Platelet Count 232 k/uL (150-450); RBC 3.87 m/uL (4.30-5.90); RDW 13.4 % (11.5-15.5); WBC 3.4 k/uL (3.8-10.6)
[2021-04-05 03:16] LABS: Eosinophils # (M) 0.03 k/uL (0-0.7); Lymphocytes # (M) 0.92 k/uL (1.0-4.8); Monocytes # (M) 1.05 k/uL (0-1.0); Neutrophils # (M) 1.39 k/uL (1.3-7.7); Neutrophils % (M) 41 %; Nucleated Red Blood Cells 0 /100 WBC (0-0); Total Cells Counted 100
[2021-04-05] MEDS: DOFETILIDE 500 MCG CAP PO SCH ×2 (05:48→17:35)
--- NOTE | 2021-04-05 08:00 | P.CRDCN ---
History of Present Illness History of present illness: HISTORY OF PRESENTING ILLNESS This is a jasvir is a pleasant 61-year-old male with history of coronary artery disease status post CABG approximately 15 years ago, paroxysmal atrial fibrillation status post ablation 2, hyperlipidemia, hemorrhoids who presents secondary to diarrhea or the past 3-4 days. He follows with Dr Rush. Patient admits for the last week and a half he has not been feeling that well with fevers and chills, temperature up to over 103. He had been feeling okay and then however 1 and A. fib with RVR on Monday and therefore went to emergency department in [place] where he quickly converted back to sinus rhythm and felt better. He was having some chest pain at that time however admits to chronic angina and chest pain improved after converting. Has not had any further chest pain or pressure. He presented to Hospital 04/04/2021 secondary to continued jess rrhea however now having bright red blood per rectum. He admits to history of hemorrhoids and believes this may be the cause. He admits the diarrhea improved overnight and states he feels great this morning. He has been on aspirin as well as Xarelto. He states he has not had a scope before. He denies any abdominal pain. He has had 2 ablations and has been on Tikosyn more recently. EKG shows sinus rhythm, normal axis, QTC 472. We'll work reviewed with hemoglobin 13.0, mildly decreased from 14.7 from yesterday, platelets 232, cell 3.4, rotavirus negative, troponin less than 0.012, creatinine 0.9, sodium 131, potassium 4.2. REVIEW OF SYSTEMS At the time of my exam: CONSTITUTIONAL: Denies fever or chills. CARDIOVASCULAR: Denies chest pain, shortness of breath, orthopnea, PND or palpi tations. RESPIRATORY: Denies cough. GASTROINTESTINAL: Denies abdominal pain, diarrhea, constipation, nausea or vomiting. MUSCULOSKELETAL: Denies myalgias. NEUROLOGIC: Denies numbness, tingling or weakness. ENDOCRINE: Denies fatigue, weight change, polydipsia or polyurina. GENITOURINARY: Denies burning, hematuria or urgency with micturation. HEMATOLOGIC: Denies history of anemia or bleeding. PHYSICAL EXAMINATION Vital signs reviewed. CONSTITUTIONAL: No apparent distress. HEENT: Head is normocephalic. Pupils are equal, round. Sclerae anicteric. Mucous membranes of the mouth are moist. No JVD. No carotid bruit. CHEST EXAMINATION: Lungs are clear to auscultation. No chest wall tenderness is noted on palpation or with deep breathing. HEART EXAMINATION: Regular rate and rhythm. S1, S2 heard. No murmurs, gallops or rub. ABDOMEN: Soft, nontender. Positive bowel sounds. EXTREMITIES: 2+ peripheral pulses, no lower extremity edema and no calf tenderness. NEUROLOGIC EXAMINATION: Patient is awake, alert and oriented x3. ASSESSMENT 1. Paroxysmal atrial fibrillation, currently normal sinus rhythm status post ablation 2, currently on Tikosyn, QTC normal 2. Coronary artery disease status post CABG, no sign of acute coronary syndrome 3. Hematochezia, possibly related to hemorrhoids with some diarrhea. 4. Hypertension 5. Hyperlipidemia 6. Recent fevers, diarrhea, chills, may be viral infection. Coronavirus negative. Appears to be improved today. PLAN Patient currently appears improved from his diarrhea and hematochezia. Aspirin and Xarelto have been held and we will defer to GI evaluation however bright red blood may be related to history of hemorrhoids. No significant anemia currently. Ideally place patient back on Xarelto when able. Appears stable from a cardiology standpoint. No further recommendations from cardiology at this time. Follow-up with fire protection fabricator in 1-2 weeks. Past Medical History Past Medical History: Atrial Fibrillation, Atrial Flutter, Coronary Artery Disease (CAD), Chest Pain / Angina, Hyperlipidemia, Myocardial Infarction ([place]), Osteoarthritis (OA), Skin Disorder, Sleep Apnea/CPAP/BIPAP Additional Past Medical History / Comment(s): "droopy eye", hx KIDNEY STONES, HEARING LOSS RT EAR.CHRONIC ,DDD,SPINAL STENOSIS, 3 HERNIATED DISC. no CPAP used, ulcerative colitis, rash and flaky skin-cause unknown, Last Myocardial Infarction Date:: 2005 History of Any Multi-Drug Resistant Organisms: None Reported Past Surgical History: Adenoidectomy, Cardiac Ablation, Coronary Bypass/CABG, Heart Catheterization, Hernia Repair, Orthopedic Surgery, Tonsillectomy Additional Past Surgical History / Comment(s): cardiac ablation x 2, SX CHILD FOR UNDESCENDED TESTICLE, CABG-triple bypass, RT ROTATOR CUFF/TENDON SX, Umbilical hernia. rt cataract, rt eyelid surgery Past Anesthesia/Blood Transfusion Reactions: Previous Problems w/ Anesthesia Additional Past Anesthesia/Blood Transfusion Reaction / Comment(s): States "wakes up in surgery". Past Psychological History: No Psychological Hx Reported Additional Psychological History / Comment(s): denies Smoking Status: Former smoker Past Alcohol Use History: Rare Additional Past Alcohol Use History / Comment(s): quit smoking 06/2020,, STARTED AT AGE 9 Y.O. Past Drug Use History: Marijuana Additional Drug Use History / Comment(s): CBD oil - Past Family History Father Family Medical History: Cancer Additional Family Medical History / Comment(s): . Sister(s) Family Medical History: Myocardial Infarction ([place]) Additional Family Medical History / Comment(s): AGE 43 FROM [place] Brother(s) Family Medical History: Coronary Artery Disease (CAD), CVA/TIA, Myocardial Infarction ([place]) Additional Family Medical History / Comment(s): AGE 42 HAD STROKE, AGE 45 HAD TRIPLE BYPASS Medications and Allergies Home Medications Medication Instructions Recorded Confirmed Type Atorvastatin [Lipitor] 80 mg PO HS 12/16/15 04/04/21 History Multivitamins, Thera [Multivitamin 1 tab PO DAILY 09/19/16 04/04/21 History (formulary)] Aspirin [Adult Low Dose Aspirin EC] 81 mg PO DAILY 10/13/20 04/04/21 History Rivaroxaban [Xarelto] 20 mg PO HS 10/13/20 04/04/21 History Fenofibrate [Lofibra] 160 mg PO DAILY 01/04/21 04/04/21 History Vitamin B Complex W/C 1 tab PO DAILY 01/04/21 04/04/21 History Zinc 50 mg PO DAILY 01/04/21 04/04/21 History Dofetilide [Tikosyn] 500 mcg PO Q12HR@0600,1800 #180 cap 01/08/21 04/04/21 Rx Magnesium Oxide [Mag-Ox] 400 mg PO DAILY #90 tab 01/08/21 04/04/21 Rx Spironolactone [Aldactone] 12.5 mg PO DAILY tab 01/08/21 04/04/21 Rx Valsartan 80 mg PO DAILY #90 tab 01/08/21 04/04/21 Rx Allergies Allergy/AdvReac Type Severity Reaction Status Date / Time morphine Allergy Rash/Hives/ Verified 04/04/21 13:29 ITCHING Physical Exam Vitals: Vital Signs Temp Pulse Pulse Resp BP BP Pulse Ox 04/05/21 06:58 97.8 F 70 15 104/66 96 04/05/21 02:00 98.3 F 69 18 130/73 96 04/05/21 00:36 16 04/04/21 20:00 98.5 F 83 16 124/77 98 04/04/21 19:45 16 04/04/21 15:56 84 04/04/21 13:03 98.2 F 108 H 16 106/75 97 Intake and Output 04/04/21 04/05/21 04/05/21 22:59 06:59 14:59 Other: # Voids 2 2 # Bowel Movements 1 Weight 95.254 kg Results 04/05/21 01:33 04/04/21 13:47 Cardiac Enzymes 04/04/21 04/04/21 Range/Units 13:47 13:47 AST 43 (17-59) U/L Troponin I <0.012 (0.000-0.034) ng/mL Coagulation 04/04/21 Range/Units 13:47 PT 11.4 (9.0-12.0) sec APTT 23.6 (22.0-30.0) sec CBC 04/04/21 04/05/21 Range/Units 13:47 01:33 WBC 4.5 3.4 L (3.8-10.6) k/uL RBC 4.45 3.87 L (4.30-5.90) m/uL Hgb 14.7 13.0 (13.0-17.5) gm/dL Hct 42.9 37.8 L (39.0-53.0) % Plt Count 268 232 (150-450) k/uL Comprehensive Metabolic Panel 04/04/21 Range/Units 13:47 Sodium 131 L (137-145) mmol/L Potassium 4.2 (3.5-5.1) mmol/L Chloride 100 (98-107) mmol/L Carbon Dioxide 20 L (22-30) mmol/L BUN 17 (9-20) mg/dL Creatinine 0.90 (0.66-1.25) mg/dL Glucose 125 H (74-99) mg/dL Calcium 9.6 (8.4-10.2) mg/dL AST 43 (17-59) U/L ALT 35 (4-49) U/L Alkaline Phosphatase 58 (38-126) U/L Total Protein 6.2 L (6.3-8.2) g/dL Albumin 3.5 (3.5-5.0) g/dL Current Medications Generic Name Dose Route Start Last Admin Trade Name Freq PRN Reason Stop Dose Admin Atorvastatin Calcium 80 mg 04/05/21 21:00 Atorvastatin 80 Mg Tab PO HS MARLEN Dofetilide 500 mcg 04/05/21 06:00 04/05/21 05:48 Dofetilide 500 Mcg Cap PO 500 mcg Q12HR@0600,1800 MARLEN Administration Fenofibrate 160 mg 04/05/21 09:00 Fenofibrate 160 Mg Tab PO DAILY MARLEN Sodium Chloride 1,000 mls @ 100 mls/hr 04/04/21 15:30 04/05/21 00:35 Saline 0.9% IV 100 mls/hr .Q10H MARLEN Administration Naloxone HCl 0.2 mg 04/04/21 15:25 Naloxone 0.4 Mg/Ml 1 Ml Vial IV Q2M PRN Opioid Reversal Ondansetron HCl 4 mg 04/04/21 15:25 Ondansetron 4 Mg/2 Ml Vial IVP Q8HR PRN Nausea And Vomiting Pantoprazole Sodium 40 mg 04/04/21 21:00 04/04/21 20:06 Pantoprazole 40 Mg/10 Ml Vial IV 40 mg BID MARLEN Administration Spironolactone 12.5 mg 04/05/21 09:00 Spironolactone 25 Mg Tab PO DAILY MARLEN Valsartan 80 mg 04/05/21 09:00 Valsartan 80 Mg Tab PO DAILY MARLEN Zinc Sulfate 220 mg 04/05/21 09:00 Zinc Sulfate 220 Mg Cap PO DAILY MARLEN Intake and Output 04/04/21 04/05/21 04/05/21 22:59 06:59 14:59 Other: # Voids 2 2 # Bowel Movements 1 Weight 95.254 kg 04/05/21 01:33 04/04/21 13:47
[2021-04-05] MEDS: PANTOPRAZOLE 40 MG/10 ML VIAL IV SCH ×2 (09:12→20:24)
[2021-04-05] MEDS: FENOFIBRATE 160 MG TAB PO SCH (09:13)
[2021-04-05] MEDS: VALSARTAN 80 MG TAB PO SCH (09:13)
[2021-04-05] MEDS: SPIRONOLACTONE 25 MG TAB PO SCH (09:13)
[2021-04-05] MEDS: ZINC SULFATE 220 MG CAP PO SCH (09:13)
[2021-04-05 09:23] LABS: HCT 37.8 % (39.6-50.0); HGB 12.6 g/dL (13.0-17.0); MCH 32.6 pg (27.0-32.0); MCHC 33.3 g/dL (32.0-37.0); MCV 97.9 fL (80.0-97.0); Mean Platelet Volume 9.7 fL (9.5-12.2); Platelet Count 258 X 10*3/uL (140-440); RBC 3.86 X 10*6/uL (4.40-5.60); RDW 13.8 % (11.5-14.5); WBC 3.72 X 10*3/uL (4.50-10.00)
[2021-04-05 09:44] LABS: Anion Gap 7.8 mmol/L (4.00-12.00); BUN/Creat Ratio 17.5 Ratio (12.00-20.00); Calcium 8.9 mg/dL (8.7-10.3); Carbon Dioxide 24.2 mmol/L (21.6-31.8); Non-African American GFR(CKD) 95.7 (60.0-200.0); Potassium 4.4 mmol/L (3.5-5.5)
[2021-04-05] MEDS: HYDROCORTISONE 2.5% RECTAL CREAM 30 GM TUBE RECTAL SCH ×2 (09:47→20:23)
[2021-04-05 11:02] LABS: Basophils # (A) 0.02 X 10*3/uL (0.00-0.10); Basophils % (A) 0.5 %; Eosinophils # (A) 0.06 X 10*3/uL (0.04-0.35); Eosinophils % (A) 1.6 %; Lymphocytes # (A) 0.94 X 10*3/uL (0.90-5.00); Lymphocytes % (A) 25.3 %; Monocytes # (A) 1.16 X 10*3/uL (0.20-1.00); Monocytes % (A) 31.2 %; Neutrophils # (A) 1.52 X 10*3/uL (1.80-7.70); Neutrophils % (A) 40.9 %
--- NOTE | 2021-04-05 15:10 | P.CONS ---
History of Present Illness - Reason for Consult Consult date: 04/05/21 GI Bleed Requesting physician: Hema Gomez - Chief Complaint Diarrhea - History of Present Illness Is is a 60-year-old pleasant white male who presented to the emergency department yesterday with complaints of diarrhea for the last weeks duration and poor oral intake for the last 1 week duration. He has a past medical history of coronary artery disease status post CABG, atrial fibrillation with history of ablation 2 and on Xarelto, hyperlipidemia, and obstructive sleep apnea. He reports having up to 15-20 loose watery stool a day, denies any blood in the stool, however would reports having 2 or 3 episodes of small amounts of bright red blood in the toilet and on his tissue. He states his anus pupils round. He had a CT of the abdomen and pelvis showing some wall thickening of the distal ileum, suggestive of inflammatory bowel disease. This could be Crohn's. He had a recent colonoscopy in November 11, [address] Israel for history of colon polyps. Sigmoid colon polyp with polypectomy, no evidence of diverticulosis, no evidence of focal colitis. Grade 2 internal hemorrhoids. Denies any recent antibiotics, no traveling, he does state he does eat out a lot. Hemoglobin on admission was 14.7, INR 1.1. Repeat labs show WBC 3.4, hemoglobin 13, hematocrit 37.8, platelets 232,000, total bilirubin 0.3, alkaline phosphatase 58, AST 43, ALT 35. Patient had a positive occult stool. Review of Systems REVIEW OF SYSTEMS: CARDIOPULMONARY: No chest pain or shortness of breath. Gastrointestinal: Abdominal pain. Positive nausea, no vomiting. No hematemesis, coffee-ground emesis. Denies blood in stool, melena. Positive bright red blood per rectum, small amount with sleeping. GENITOURINARY: No dysuria or hematuria. MUSCULOSKELETAL: Reports normal range of motion., Joint pain. SKIN: No rashes. No jaundice. ENDOCRINE: No chills, fevers. No excessive weight gain or loss. No polydipsia or polyuria. PSYCHIATRIC: Unremarkable. NEUROLOGY: No change in mental status. Denies dizziness, headache. ENT: Vision unremarkable. CONSTITUTIONAL: No recent weight loss. No fever, chills, night sweats. Past Medical History Past Medical History: Atrial Fibrillation, Atrial Flutter, Coronary Artery Disease (CAD), Chest Pain / Angina, Hyperlipidemia, Myocardial Infarction ([place]), Osteoarthritis (OA), Skin Disorder, Sleep Apnea/CPAP/BIPAP Additional Past Medical History / Comment(s): "droopy eye", hx KIDNEY STONES, HEARING LOSS RT EAR.CHRONIC ,DDD,SPINAL STENOSIS, 3 HERNIATED DISC. no CPAP used, ulcerative colitis, rash and flaky skin-cause unknown, Last Myocardial Infarction Date:: 2005 History of Any Multi-Drug Resistant Organisms: None Reported Past Surgical History: Adenoidectomy, Cardiac Ablation, Coronary Bypass/CABG, Heart Catheterization, Hernia Repair, Orthopedic Surgery, Tonsillectomy Additional Past Surgical History / Comment(s): cardiac ablation x 2, SX CHILD FOR UNDESCENDED TESTICLE, CABG-triple bypass, RT ROTATOR CUFF/TENDON SX, Umbilical hernia. rt cataract, rt eyelid surgery Past Anesthesia/Blood Transfusion Reactions: Previous Problems w/ Anesthesia Additional Past Anesthesia/Blood Transfusion Reaction / Comm: States "wakes up in surgery". Past Psychological History: No Psychological Hx Reported Additional Psychological History / Comment(s): denies Smoking Status: Former smoker Past Alcohol Use History: Rare Additional Past Alcohol Use History / Comment(s): quit smoking 06/2020,, STARTED AT AGE 9 Y.O. Past Drug Use History: Marijuana Additional Drug Use History / Comment(s): CBD oil - Past Family History Father Family Medical History: Cancer Additional Family Medical History / Comment(s): . Sister(s) Family Medical History: Myocardial Infarction ([place]) Additional Family Medical History / Comment(s): AGE 43 FROM [place] Brother(s) Family Medical History: Coronary Artery Disease (CAD), CVA/TIA, Myocardial Infarction ([place]) Additional Family Medical History / Comment(s): AGE 42 HAD STROKE, AGE 45 HAD TRIPLE BYPASS Medications and Allergies Home Medications Medication Instructions Recorded Confirmed Type Atorvastatin [Lipitor] 80 mg PO HS 12/16/15 04/04/21 History Multivitamins, Thera [Multivitamin 1 tab PO DAILY 09/19/16 04/04/21 History (formulary)] Aspirin [Adult Low Dose Aspirin EC] 81 mg PO DAILY 10/13/20 04/04/21 History Rivaroxaban [Xarelto] 20 mg PO HS 10/13/20 04/04/21 History Fenofibrate [Lofibra] 160 mg PO DAILY 01/04/21 04/04/21 History Vitamin B Complex W/C 1 tab PO DAILY 01/04/21 04/04/21 History Zinc 50 mg PO DAILY 01/04/21 04/04/21 History Dofetilide [Tikosyn] 500 mcg PO Q12HR@0600,1800 #180 cap 01/08/21 04/04/21 Rx Magnesium Oxide [Mag-Ox] 400 mg PO DAILY #90 tab 01/08/21 04/04/21 Rx Spironolactone [Aldactone] 12.5 mg PO DAILY tab 01/08/21 04/04/21 Rx Valsartan 80 mg PO DAILY #90 tab 01/08/21 04/04/21 Rx Allergies Allergy/AdvReac Type Severity Reaction Status Date / Time morphine Allergy Rash/Hives/ Verified 04/04/21 13:29 ITCHING Physical Exam Vitals: Vital Signs Temp Pulse Pulse Resp BP BP Pulse Ox 04/05/21 06:58 97.8 F 70 15 104/66 96 04/05/21 02:00 98.3 F 69 18 130/73 96 04/05/21 00:36 16 04/04/21 20:00 98.5 F 83 16 124/77 98 04/04/21 19:45 16 04/04/21 15:56 84 04/04/21 13:03 98.2 F 108 H 16 106/75 97 Intake and Output 04/04/21 04/05/21 04/05/21 22:59 06:59 14:59 Other: # Voids 2 2 # Bowel Movements 1 Weight 95.254 kg General appearance: The patient is alert, oriented, appears in no acute distress. HET: Head is normocephalic and atraumatic. Conjunctiva pink. Sclera anicteric. Neck: Supple without lymphadenopathy. Trachea midline. Heart: S1 S2. Regular rate and rhythm. Lungs: Clear to auscultation. Abdomen: Soft, nontender, nondistended with bowel sounds. No guarding or rigidity. Extremities: Normal skin color and turgor. No pedal edema. Neurological: No focal deficits. Alert and oriented 3. Results CBC & Chem 7: 04/05/21 05:19 04/05/21 05:19 Labs: Abnormal Lab Results - Last 24 Hours (Table) 04/04/21 04/05/21 Range/Units 13:47 01:33 WBC 3.4 L (3.8-10.6) k/uL RBC 3.87 L (4.30-5.90) m/uL Hct 37.8 L (39.0-53.0) % Lymphocytes # (Manual) 0.92 L (1.0-4.8) k/uL Monocytes # (Manual) 1.05 H (0-1.0) k/uL Sodium 131 L (137-145) mmol/L Carbon Dioxide 20 L (22-30) mmol/L Glucose 125 H (74-99) mg/dL Total Protein 6.2 L (6.3-8.2) g/dL CT scan - abdomen: report reviewed (Compared to recent exam there is appearance of some wall thickening of the long segment of distal ileum that is suggestive of inflammatory bowel disease this could be Crohn's disease.) Assessment and Plan (1) Diarrhea Narrative/Plan: This is 60-year-old male with complaints of loose, watery diarrhea up to 15-20 times a day that began 8 days ago. He denied any recent antibiotics, no traveling, does state he does eat out a lot. He is denying any vomiting or abdominal pain. Patient does have a history of atrial fibrillation and takes Xarelto, currently on hold. The patient had a recent colonoscopy November [address] Gandara for history of colon polyps, he had a sigmoid colon polyp with polypectomy, no evidence diverticulosis, no evidence focal colitis. He did have grade [address] of the abdomen showed some wall thickening of the distal ileum suggestive of inflammatory bowel disease. This could be Crohn's. Diarrhea has improved some, he denies any blood in stool, however did state he did have a small amount of rectal bleeding after his bowel movement. He noted on the toilet paper and a small amount in the toilet. Lower GI bleed likely related to internal hemorrhoids, patient is complaining of rectal irritation. Diarrhea possibly related to viral gastroenteritis, however infectious etiology has been considered and C. difficile toxin and stool cultures ordered. Also need to consider inflammatory process, sed rate and CRP will be ordered. Current Visit: No Status: Acute Code(s): R19.7 - DIARRHEA, UNSPECIFIED SNOMED Code(s): 41514828 (2) Chronic atrial fibrillation Current Visit: Yes Status: Acute Code(s): I48.20 - CHRONIC ATRIAL FIBRILLATION, UNSPECIFIED SNOMED Code(s): 729448965 (3) Positive fecal occult blood test Current Visit: Yes Status: Acute Code(s): R19.5 - OTHER FECAL ABNORMALITIES SNOMED Code(s): 88710831 (4) Hemorrhoids Current Visit: No Status: Acute Code(s): K64.9 - UNSPECIFIED HEMORRHOIDS SNOMED Code(s): 90832004 Plan: 1. May have full liquid diet 2. Repeat CBC in the morning 3. C. difficile I'll and stool cultures ordered 4. Sed rate and CRP ordered 5. CT of the abdomen reviewed 6. Hemorrhoidal cream ordered 7. No plans on endoscopic evaluation at this time, however would consider outpatient follow-up in 6-8 weeks for colonoscopy Thank you for this consultation, we will continue to follow. Dr. Figueroa I agree with the dictator's note, documented as a scribe by Beti Boyer.
--- NOTE | 2021-04-05 16:24 | PN ---
PROGRESS NOTE DATE OF SERVICE: 04/05/2021 INTERVAL HISTORY: This is a 60-year-old gentleman who was admitted with acute lower GI bleed is being closely monitored at this time. Gastroenterology has seen the patient and recommended full liquid diet and not planning for any endoscopy at this time. The abdominal pelvis CT scan showed some wall thickening of the long segment of the distal ileum, maybe some inflammatory bowel disease. No chest pain. No palpitations. No fever. PHYSICAL EXAMINATION: GENERAL: Alert and oriented x3. VITAL SIGNS: Pulse is 73, blood pressure 137/72, respiration 16, temperature 97.4, pulse ox 94% on room air. HEENT: Conjunctivae normal. Oral mucosa moist. NECK: No jugular venous distention. No carotid bruits. RESPIRATORY: Breath sounds diminished at the bases. A few scattered rhonchi. HEART: S1 and S2, muffled. ABDOMEN: Soft, mild diffuse discomfort. EXTREMITIES: No edema, no swelling. NERVOUS: No focal deficits. LABS: WBC 3.7, hemoglobin 12.6, sodium 134. ASSESSMENT: 1. Acute lower gastrointestinal bleeding for evaluation. 2. Abdominal pain with possibly long segment of thickened segment of the ileum, possibly Crohn's disease. 3. Diarrheal illness with fever, possibly infectious diarrhea. 4. Hyponatremia. 5. Atrial fibrillation. 6. History of atrial flutter fibrillation. 7. History of coronary artery disease. 8. History of chest pain. 9. Hyperlipidemia. 10.History of myocardial infarction. 11.History of degenerative joint disease. 12.History of sleep apnea. 13.History of droopy eyes. 14.History of nephrolithiasis. 15.History of adenoidectomy. 16.History of cardiac ablation. 17.History of coronary artery disease with CABG. On anticoagulation. 18.Remote history of nicotine dependence. 19.Obesity with body mass index of 30.1. 20.FULL CODE. RECOMMENDATION AND DISCUSSION: Recommend to continue current management and continue symptomatic treatment. Closely follow with Cardiology as well as Gastroenterology. Prognosis guarded. Repeat labs will be ordered for tomorrow. Further recommendations to follow. Recommend to hold off any anticoagulants currently. MMODL / IJN: [id number] /
[2021-04-05] MEDS: CHOLESTYRAMINE (WITH SUGAR) 4 GM PACKET PO SCH (17:35)
[2021-04-05] MEDS ORDERED: LOPERAMIDE 2 MG CAP PO PRN (17:46)
[2021-04-05] MEDS: ATORVASTATIN 80 MG TAB PO SCH (20:23)
[2021-04-06] MEDS: DOFETILIDE 500 MCG CAP PO SCH ×2 (05:43→17:49)
[2021-04-06 09:13] LABS: HGB 12.5 g/dL (13.0-17.0); MCH 31.8 pg (27.0-32.0); MCHC 32.1 g/dL (32.0-37.0); MCV 99.2 fL (80.0-97.0); Mean Platelet Volume 9.6 fL (9.5-12.2); Platelet Count 295 X 10*3/uL (140-440); RBC 3.93 X 10*6/uL (4.40-5.60); RDW 13.9 % (11.5-14.5); WBC 4.79 X 10*3/uL (4.50-10.00)
[2021-04-06] MEDS: SPIRONOLACTONE 25 MG TAB PO SCH (09:51)
[2021-04-06] MEDS: ZINC SULFATE 220 MG CAP PO SCH (09:52)
[2021-04-06] MEDS: FENOFIBRATE 160 MG TAB PO SCH (09:52)
[2021-04-06] MEDS: PANTOPRAZOLE 40 MG/10 ML VIAL IV SCH (09:52)
[2021-04-06] MEDS: CHOLESTYRAMINE (WITH SUGAR) 4 GM PACKET PO SCH ×2 (09:53→17:50)
[2021-04-06] MEDS: HYDROCORTISONE 2.5% RECTAL CREAM 30 GM TUBE RECTAL SCH ×2 (09:53→20:24)
[2021-04-06] MEDS: VALSARTAN 80 MG TAB PO SCH (10:00)
[2021-04-06 10:45] LABS: African American GFR (CKD) 117.2 (60.0-200.0); Anion Gap 6.4 mmol/L (4.00-12.00); BUN/Creat Ratio 12.86 Ratio (12.00-20.00); Carbon Dioxide 25.6 mmol/L (21.6-31.8); Non-African American GFR(CKD) 101.1 (60.0-200.0); Potassium 3.8 mmol/L (3.5-5.5)
[2021-04-06 11:50] LABS: Basophils # (M) 0.05 X 10*3/uL (0.00-0.10); Lymphocytes # (M) 1.29 X 10*3/uL (0.90-5.00); Metamyelocytes % 4 % (0-0); Monocytes # (M) 1.05 X 10*3/uL (0.20-1.00); Neutrophils # (M) 2.11 X 10*3/uL (2.00-8.90); Neutrophils % (M) 44 %
--- NOTE | 2021-04-06 17:05 | P.PN ---
Subjective Progress Note Date: 04/06/21 Principal diagnosis: Diarrhea, bright red blood per rectum Patient was seen and examined lying in bed he states he had 4-5 loose bowel movements through the night, smaller in amount. He denies any blood in the stool, or blood per rectum. He denies any nausea or vomiting. States he has some mild cramping with the bowel movements. States overall he is feeling somewhat better. He has been afebrile. Sed rate 42, CRP 6.8, C. Difficile toxin was negative. Objective - Vital Signs Vital signs: Vital Signs Temp 98.4 F 04/06/21 07:00 Pulse 69 04/06/21 07:00 Resp 16 04/06/21 07:00 BP 112/68 04/06/21 07:00 Pulse Ox 96 04/06/21 02:00 Intake & Output 04/05/21 04/06/21 04/06/21 18:59 06:59 18:59 Intake Total 250 300 200 Output Total 1 5 Balance 249 295 200 Intake: Oral 250 300 200 Output: Stool 1 5 Other: # Voids 3 - Exam General appearance: The patient is alert, oriented, appears in no acute distress. HET: Head is normocephalic and atraumatic. Conjunctiva pink. Sclera anicteric. Neck: Supple without lymphadenopathy. Abdomen: Soft, nontender, nondistended with bowel sounds. No guarding or rigidity. Extremities: Normal skin color and turgor. No pedal edema Skin: No rashes, no jaundice Neurological: No focal deficits. Alert and oriented 3. - Labs CBC & Chem 7: 04/06/21 05:50 04/06/21 05:50 Labs: Abnormal Lab Results - Last 24 Hours (Table) 04/05/21 04/05/21 04/05/21 Range/Units 05:19 13:57 13:57 RBC (4.40-5.60) X 10*6/uL Hgb (13.0-17.0) g/dL Hct (39.6-50.0) % MCV (80.0-97.0) fL Neutrophils # 1.52 L (1.80-7.70) X 10*3/uL Monocytes # 1.16 H (0.20-1.00) X 10*3/uL ESR 42 H (0-15) mm/hr C-Reactive Protein 6.8 H (<1.0) mg/dL 04/06/21 Range/Units 05:50 RBC 3.93 L (4.40-5.60) X 10*6/uL Hgb 12.5 L (13.0-17.0) g/dL Hct 39.0 L (39.6-50.0) % MCV 99.2 H (80.0-97.0) fL Neutrophils # (1.80-7.70) X 10*3/uL Monocytes # (0.20-1.00) X 10*3/uL ESR (0-15) mm/hr C-Reactive Protein (<1.0) mg/dL Microbiology - Last 24 Hours (Table) 04/05/21 12:20 Stool Culture - Preliminary Stool Assessment and Plan (1) Diarrhea Narrative/Plan: This is 60-year-old male with complaints of loose, watery diarrhea up to 15-20 times a day that began 8 days ago. He denied any recent antibiotics, no traveling, does state he does eat out a lot. He is denying any vomiting or abdominal pain. Patient does have a history of atrial fibrillation and takes Xarelto, currently on hold. The patient had a recent colonoscopy November [address] Gandara for history of colon polyps, he had a sigmoid colon polyp with polypectomy, no evidence diverticulosis, no evidence focal colitis. He did have grade [address] of the abdomen showed some wall thickening of the distal ileum suggestive of inflammatory bowel disease. This could be Crohn's. Diarrhea has improved some, he denies any blood in stool, however did state he did have a small amount of rectal bleeding after his bowel movement. He noted on the toilet paper and a small amount in the toilet. Lower GI bleed likely related to internal hemorrhoids, patient is complaining of rectal irritation. Diarrhea possibly related to viral gastroenteritis, however infectious etiology has been considered and C. difficile toxin and stool cultures ordered. Also need to consider inflammatory process, sed rate and CRP will be ordered. Current Visit: No Status: Acute Code(s): R19.7 - DIARRHEA, UNSPECIFIED SNOMED Code(s): 24653462 (2) Chronic atrial fibrillation Current Visit: Yes Status: Acute Code(s): I48.20 - CHRONIC ATRIAL FIBRIL LATION, UNSPECIFIED SNOMED Code(s): 668043107 (3) Positive fecal occult blood test Current Visit: Yes Status: Acute Code(s): R19.5 - OTHER FECAL ABNORMALITIES SNOMED Code(s): 84602412 (4) Hemorrhoids Current Visit: No Status: Acute Code(s): K64.9 - UNSPECIFIED HEMORRHOIDS SNOMED Code(s): 69798164 Plan: 1. May have full liquid diet 2. Repeat CBC in the morning 3. C. difficile negative, stool cultures pending 4. Sed rate and CRP ordered 5. CT of the abdomen reviewed 6. Questran and Imodium ordered 7. Hemorrhoidal cream ordered 8. No plans on endoscopic evaluation at this time, as patient would like to hold off at this time. However would recommend outpatient follow-up in 6-8 john rincon for colonoscopy Thank you for this consultation, we will continue to follow. Dr. Figueroa I agree with the dictator's note, documented as a scribe by Beti Boyer.
[2021-04-06] MEDS: SODIUM CHLORIDE 0.9% 1,000 ML IV SCH (17:49)
[2021-04-06] MEDS: ATORVASTATIN 80 MG TAB PO SCH (20:23)
[2021-04-06] MEDS: PANTOPRAZOLE 40 MG TABLET PO SCH (20:23)
--- NOTE | 2021-04-06 20:25 | P.PN ---
Subjective Progress Note Date: 04/06/21 Principal diagnosis: Gastrointestinal bleeding 60-year-old gentleman with past medical history of of atrial fibrillation/atrial flutter, coronary artery disease, hypertension, hyperlipidemia, and history of myocardial infarction was admitted to the hospital for continuous diarrhea with severe abdominal pain. Subjective data obtained from the emergency notes patient complaint of fever/chills upon admission. Patient noted to have a fever of 103.5 with blood in his stool prior to admission with associated symptoms of lightheadedness.Consultation with gastroenterology was initiated due to abdominal pain and subjective data blood in stool. Upon evaluation this a.m. patient resting comfortably in bed, patient continues to endorse abdominal pain with diarrhea and mild lightheadedness with movement. Awaiting on diagnostic testing labs this a.m., Continue supportive care from gastroenterology's perspective. Objective - Vital Signs Vital signs: Vital Signs Temp 98.9 F 04/06/21 19:52 Pulse 71 04/06/21 19:52 Resp 16 04/06/21 19:52 BP 119/63 04/06/21 19:52 Pulse Ox 97 04/06/21 19:52 Intake & Output 04/06/21 04/06/21 04/07/21 06:59 18:59 06:59 Intake Total 300 300 Output Total 5 Balance 295 300 Intake: Oral 300 300 Output: Stool 5 Other: # Voids 3 1 - Constitutional General appearance: Present: cooperative, no acute distress - EENT Eyes: Present: EOMI, PERRLA ENT: Present: normal oropharynx Ears: bilateral: normal - Neck Neck: Present: normal ROM Carotids: bilateral: upstroke normal Thyroid: bilateral: normal size - Respiratory Respiratory: bilateral: CTA (Anterior posterior lung aguilar) - Cardiovascular Details: Normal sinus rhythm Heart rate: 74 Rhythm: regular Heart sounds: normal: S1, S2 - Peripheral pulses radial pulse Peripheral Pulses: bilateral: Normal dorsalis pedis Peripheral Pulses: bilateral: Normal - Gastrointestinal General gastrointestinal: Present: hyperactive bowel sounds, tenderness Localized gastrointestinal: tender: diffuse - Integumentary Integumentary: Present: decreased turgor - Neurologic Neurologic: Present: CNII-XII intact - Musculoskeletal Musculoskeletal: Present: generalized weakness - Psychiatric Psychiatric: Present: A&O x's 3, appropriate affect, intact judgment & insight - Allied health notes Allied health notes reviewed: nursing - Labs CBC & Chem 7: 04/06/21 05:50 04/06/21 05:50 Labs: Abnormal Lab Results - Last 24 Hours (Table) 04/06/21 Range/Units 05:50 RBC 3.93 L (4.40-5.60) X 10*6/uL Hgb 12.5 L (13.0-17.0) g/dL Hct 39.0 L (39.6-50.0) % MCV 99.2 H (80.0-97.0) fL Metamyelocytes % 4 H (0-0) % Monocytes # (Manual) 1.05 H (0.20-1.00) X 10*3/uL Microbiology - Last 24 Hours (Table) 04/05/21 12:20 Stool Culture - Preliminary Stool Assessment and Plan Assessment: gastrointestinal bleeding diarrhea hyponatremia history of atrial fibrillation/atrial flutter history of coronary artery disease hyperlipidemia hypertension history of myocardial infarction degenerative joint disease sleep apnea history of cardiac ablation history of coronary artery disease, with coronary artery bypass on anticoagulation therapy for paroxysmal atrial flutter in atrial fibrillation full code Plan: gastrointestinal bleeding, continue to trend hemoglobin and hematocrit, consultation with gastroenterology for recommendations and treatment plan diarrhea continue IV hydration, awaiting stool cultures hyponatremia continue IV hydration continue to monitor vital signs and diagnostic testing further recommendations to come based on patient's clinical condition hopeful discharge in 24 hours Time with Patient: Greater than 30
[2021-04-06] MEDS: DIPHENOX-ATROP 2.5-0.025 MG 1 EACH TAB PO SCH (23:04)
[2021-04-07] MEDS: SODIUM CHLORIDE 0.9% 1,000 ML IV SCH (05:35)
[2021-04-07] MEDS: DOFETILIDE 500 MCG CAP PO SCH (05:36)
[2021-04-07 09:17] LABS: HCT 39.2 % (39.6-50.0); HGB 12.4 g/dL (13.0-17.0); MCH 31.9 pg (27.0-32.0); MCHC 31.6 g/dL (32.0-37.0); MCV 100.8 fL (80.0-97.0); Mean Platelet Volume 9.6 fL (9.5-12.2); Platelet Count 316 X 10*3/uL (140-440); RBC 3.89 X 10*6/uL (4.40-5.60); RDW 14.3 % (11.5-14.5)
[2021-04-07] MEDS: DIPHENOX-ATROP 2.5-0.025 MG 1 EACH TAB PO SCH ×2 (09:30→14:51)
[2021-04-07] MEDS: PANTOPRAZOLE 40 MG TABLET PO SCH (09:30)
[2021-04-07] MEDS: VALSARTAN 80 MG TAB PO SCH (09:30)
[2021-04-07] MEDS: FENOFIBRATE 160 MG TAB PO SCH (09:31)
[2021-04-07] MEDS: SPIRONOLACTONE 25 MG TAB PO SCH (09:31)
[2021-04-07] MEDS: ZINC SULFATE 220 MG CAP PO SCH (09:31)
[2021-04-07] MEDS: CHOLESTYRAMINE (WITH SUGAR) 4 GM PACKET PO SCH (09:32)
[2021-04-07] MEDS: HYDROCORTISONE 2.5% RECTAL CREAM 30 GM TUBE RECTAL SCH (09:32)
[2021-04-07 11:06] LABS: Basophils # (A) 0.05 X 10*3/uL (0.00-0.10); Basophils % (A) 0.7 %; Eosinophils # (A) 0.26 X 10*3/uL (0.04-0.35); Eosinophils % (A) 3.7 %; Lymphocytes # (A) 1.84 X 10*3/uL (0.90-5.00); Lymphocytes % (A) 25.9 %; Monocytes # (A) 1.45 X 10*3/uL (0.20-1.00); Monocytes % (A) 20.4 %; Neutrophils # (A) 3.29 X 10*3/uL (1.80-7.70); Neutrophils % (A) 46.3 %
[2021-04-07 13:44] LABS: Albumin 3.4 g/dL (3.80-4.90); Albumin/Globulin Ratio 1.89 (1.60-3.17); Anion Gap 9.7 mmol/L (4.00-12.00); Carbon Dioxide 23.3 mmol/L (21.6-31.8); Globulin 1.8 g/dL (1.6-3.3); Magnesium 1.7 mg/dL (1.5-2.4); Non-African American GFR(CKD) 95.7 (60.0-200.0); Total Bilirubin 0.3 mg/dL (0.3-1.2); Total Protein 5.2 g/dL (6.2-8.2)
--- NOTE | 2021-04-07 14:33 | P.PN ---
Subjective Progress Note Date: 04/07/21 Principal diagnosis: Diarrhea, bright red blood per rectum She was seen and examined lying in bed. He states his diarrhea has improved, has definitely slowed down and he is not having as much. Denies any rectal bleeding. Still having some lower abdominal cramping. Tolerating his diet. He has been afebrile in no acute changes through the night. Objective - Vital Signs Vital signs: Vital Signs Temp 98.2 F 04/07/21 07:00 Pulse 71 04/07/21 07:00 Resp 14 04/07/21 07:00 BP 114/72 04/07/21 07:00 Pulse Ox 97 04/07/21 07:00 Intake & Output 04/06/21 04/07/21 04/07/21 18:59 06:59 18:59 Intake Total 300 Output Total 4 Balance 300 -4 Intake: Oral 300 Output: Stool 4 Other: # Voids 1 3 - Exam General appearance: The patient is alert, oriented, appears in no acute distress. HET: Head is normocephalic and atraumatic. Conjunctiva pink. Sclera anicteric. Neck: Supple without lymphadenopathy. Abdomen: Soft, mild lower abdominal tenderness, nondistended with bowel sounds. No guarding or rigidity. Extremities: Normal skin color and turgor. No pedal edema Skin: No rashes, no jaundice Neurological: No focal deficits. Alert and oriented 3. - Labs CBC & Chem 7: 04/07/21 04:37 04/07/21 04:37 Labs: Abnormal Lab Results - Last 24 Hours (Table) 04/07/21 Range/Units 04:37 RBC 3.89 L (4.40-5.60) X 10*6/uL Hgb 12.4 L (13.0-17.0) g/dL Hct 39.2 L (39.6-50.0) % MCV 100.8 H (80.0-97.0) fL MCHC 31.6 L (32.0-37.0) g/dL Immature Gran # 0.21 H (0.00-0.04) X 10*3/uL Monocytes # 1.45 H (0.20-1.00) X 10*3/uL Assessment and Plan (1) Diarrhea Narrative/Plan: This is 60-year-old male with complaints of loose, watery diarrhea up to 15-20 times a day that began 8 days ago. He denied any recent antibiotics, no traveling, does state he does eat out a lot. He is denying any vomiting or abdominal pain. Patient does have a history of atrial fibrillation and takes Xarelto, currently on hold. The patient had a recent colonoscopy November [address] Gandara for history of colon polyps, he had a sigmoid colon polyp with polypectomy, no evidence diverticulosis, no evidence focal colitis. He did have grade [address] of the abdomen showed some wall thickening of the distal ileum suggestive of inflammatory bowel disease. This could be Crohn's. Diarrhea has improved some, he denies any blood in stool, however did state he did have a small amount of rectal bleeding after his bowel movement. He noted on the toilet paper and a small amount in the toilet. Lower GI bleed likely related to internal hemorrhoids, patient is complaining of rectal irritation. Diarrhea possibly related to viral gastroenteritis, however infectious etiology has been considered and C. difficile toxin and stool cultures ordered. Also need to consider inflammatory process, sed rate and CRP will be ordered. Improved. Current Visit: No Status: Acute Code(s): R19.7 - DIARRHEA, UNSPECIFIED SNOMED Code(s): 11850099 (2) Chronic atrial fibrillation Current Visit: Yes Status: Acute Code(s): I48.20 - CHRONIC ATRIAL FIBRILLATION, UNSPECIFIED SNOMED Code(s): 432706526 (3) Positive fecal occult blood test Current Visit: Yes Status: Acute Code(s): R19.5 - OTHER FECAL ABNORMALITIES SNOMED Code(s): 00958538 (4) Hemorrhoids Current Visit: No Status: Acute Code(s): K64.9 - UNSPECIFIED HEMORRHOIDS SNOMED Code(s): 39188682 Plan: 1. Diabetes tolerated 2. Repeat CBC in the morning 3. C. difficile negative, stool cultures pending 4. Sed rate and CRP ordered 5. CT of the abdomen reviewed 6. Questran and Imodium ordered 7. Hemorrhoidal cream ordered 8. No plans on endoscopic evaluation at this time, as patient would like to hold off at this time. However would recommend outpatient follow-up in 6-8 weeks for colonoscopy Thank you for this consultation, patient is cleared for discharge from gastroenterology with follow-up in [address] Figueroa I agree with the dictator's note, documented as a scribe by Beti Boyer.
[2021-04-07 15:07] VITALS: BP 125/69; PULSE 83; RESP 18; TEMP 98.3
--- NOTE | 2021-04-07 19:33 | P.DS ---
Providers Date of admission: 04/06/21 12:07 Expected date of discharge: 04/07/21 Attending physician: Hema Gomez Consults: 04/04/21 15:27 Consult Physician Routine Consulting Provider: Isabel Reis Consult Reason/Comments: GI bleed Do you want consulting provider notified?: Yes Primary care physician: Hema Gomez Hospital Course: 60-year-old gentleman with past medical history of of atrial fibrillation/atrial flutter, coronary artery disease, hypertension, hyperlipidemia, and history of myocardial infarction was admitted to the hospital for continuous diarrhea with severe abdominal pain. Subjective data obtained from the emergency notes patient complaint of fever/chills upon admission. Patient noted to have a fever of 103.5 with blood in his stool prior to admission with associated symptoms of lightheadedness.Throughout hospital stay, patients hemoglobin and hematocrit remains stable; patient was Evaluated by gastroenterology with recommendations of supportive care. Patient had a CT abdomen and pelvis with impression of mild inflammation with possible Crohn's; patient follow-up with gastroenterology for colonoscopy. Anticoagulation therapy was held due to positive blood in stool prior to admission. Upon discharge patient will be replaced on anticoagulation therapy with close monitoring in one to 2 days with primary care for hemoglobin and hematocrit. Patient episodes of diarrhea subsided with antidiarrhea will medications and supportive care of IV hydration and diet as tolerated. Constitutional General appearance: Present: cooperative, no acute distress - EENT Eyes: Present: EOMI, PERRLA ENT: Present: normal oropharynx Ears: bilateral: normal - Neck Neck: Present: normal ROM Carotids: bilateral: upstroke normal Thyroid: bilateral: normal size - Respiratory Respiratory: bilateral: CTA (Anterior posterior lung aguilar) - Cardiovascular Details: Normal sinus rhythm Heart rate: 74 Rhythm: regular Heart sounds: normal: S1, S2 - Peripheral pulses radial pulse Peripheral Pulses: bilateral: Normal dorsalis pedis Peripheral Pulses: bilateral: Normal - Gastrointestinal General gastrointestinal:Soft nontender normal active in all quadrants - Integumentary Integumentary: Present: Normal turgor - Neurologic Neurologic: Present: CNII-XII intact - Musculoskeletal Musculoskeletal: Present: Strengthen all extremities 5 out of 5 - Psychiatric Psychiatric: Present: A&O x's 3, appropriate affect, intact judgment & insight Assessment: gastrointestinal bleeding-No episodes of bleeding during hospital stay diarrhea, Subsided throughout hospital stay with supportive therapy hyponatremia history of atrial fibrillation/atrial flutter history of coronary artery disease hyperlipidemia hypertension history of myocardial infarction degenerative joint disease sleep apnea history of cardiac ablation history of coronary artery disease, with coronary artery bypass on anticoagulation therapy for paroxysmal atrial flutter in atrial fibrillation full code Health Concerns: Multiple comorbidities Pertinent Studies: KUB x-ray chest x-ray CT abdomen and pelvis Procedures: None performed during hospital stay Patient Condition at Discharge: Fair Plan - Discharge Summary Discharge Rx Participant: No New Discharge Prescriptions: New Hydrocortisone Pr Cream [Proctosol-Hc 2.5%] 1 applic RECTAL BID #60 applic Continue Atorvastatin [Lipitor] 80 mg PO HS Multivitamins, Thera [Multivitamin (formulary)] 1 tab PO DAILY Rivaroxaban [Xarelto] 20 mg PO HS Aspirin [Adult Low Dose Aspirin EC] 81 mg PO DAILY Zinc 50 mg PO DAILY Fenofibrate [Lofibra] 160 mg PO DAILY Dofetilide [Tikosyn] 500 mcg PO Q12HR@0600,1800 #180 cap Valsartan 80 mg PO DAILY #90 tab Vitamin B Complex W/C 1 tab PO DAILY Magnesium Oxide [Mag-Ox] 400 mg PO DAILY #90 tab Spironolactone [Aldactone] 12.5 mg PO DAILY tab Discharge Medication List Atorvastatin [Lipitor] 80 mg PO HS 12/16/15 [History] Multivitamins, Thera [Multivitamin (formulary)] 1 tab PO DAILY 09/19/16 [History] Aspirin [Adult Low Dose Aspirin EC] 81 mg PO DAILY 10/13/20 [History] Rivaroxaban [Xarelto] 20 mg PO HS 10/13/20 [History] Fenofibrate [Lofibra] 160 mg PO DAILY 01/04/21 [History] Vitamin B Complex W/C 1 tab PO DAILY 01/04/21 [History] Zinc 50 mg PO DAILY 01/04/21 [History] Dofetilide [Tikosyn] 500 mcg PO Q12HR@0600,1800 #180 cap 01/08/21 [Rx] Magnesium Oxide [Mag-Ox] 400 mg PO DAILY #90 tab 01/08/21 [Rx] Spironolactone [Aldactone] 12.5 mg PO DAILY tab 01/08/21 [Rx] Valsartan 80 mg PO DAILY #90 tab 01/08/21 [Rx] Hydrocortisone Pr Cream [Proctosol-Hc 2.5%] 1 applic RECTAL BID #60 applic 04/07/21 [Rx] Follow up Appointment(s)/Referral(s): Hema Gomez MD [Primary Care Provider] - 04/12/21 10:20 am Peewee Figueroa MD [STAFF PHYSICIAN] - 04/27/21 4:30 pm Patient Instructions/Handouts: Gastrointestinal Bleeding (DC) Discharge Disposition: HOME SELF-CARE
== END 2021-04-07 17:26 | disposition home or self-care (01) ==
LOC: EC 13:02 → 6NMEDSUR 15:39 → OBSVTOIN 04-06 12:07 → INTOOBSV 04-06 12:07 → UNDODISIN 04-07 17:26
PROVIDERS: ADMIT Family Medicine; ATTEND Family Medicine
DX: K92.2 Gastrointestinal hemorrhage, unspecified (principal); R19.7 Diarrhea, unspecified; E87.1 Hypo-osmolality and hyponatremia; I48.20 Chronic atrial fibrillation, unspecified; I48.92 Unspecified atrial flutter; I25.10 Atherosclerotic heart disease of native coronary artery without angina pectoris; E78.5 Hyperlipidemia, unspecified; I10 Essential (primary) hypertension; I25.2 Old myocardial infarction; M19.90 Unspecified osteoarthritis, unspecified site; G47.33 Obstructive sleep apnea (adult) (pediatric); Z95.1 Presence of aortocoronary bypass graft; R50.9 Fever, unspecified; K92.1 Melena; E66.9 Obesity, unspecified; Z68.30 Body mass index [BMI] 30.0-30.9, adult; K64.8 Other hemorrhoids; H91.91 Unspecified hearing loss, right ear; H54.7 Unspecified visual loss; E86.0 Dehydration; R21 Rash and other nonspecific skin eruption; K64.1 Second degree hemorrhoids; M48.00 Spinal stenosis, site unspecified; Z20.822 Contact with and (suspected) exposure to COVID-19; Z87.19 Personal history of other diseases of the digestive system; Z87.438 Personal history of other diseases of male genital organs; Z87.39 Personal history of other diseases of the musculoskeletal system and connective tissue; Z86.69 Personal history of other diseases of the nervous system and sense organs; Z86.79 Personal history of other diseases of the circulatory system; Z87.2 Personal history of diseases of the skin and subcutaneous tissue; Z87.442 Personal history of urinary calculi; Z87.891 Personal history of nicotine dependence; Z86.010 Personal history of colon polyps; Z88.5 Allergy status to narcotic agent; Z79.899 Other long term (current) drug therapy; Z79.82 Long term (current) use of aspirin; Z79.01 Long term (current) use of anticoagulants; Z90.49 Acquired absence of other specified parts of digestive tract; Z90.89 Acquired absence of other organs; Z98.890 Other specified postprocedural states; Z80.9 Family history of malignant neoplasm, unspecified; Z82.49 Family history of ischemic heart disease and other diseases of the circulatory system; Z82.3 Family history of stroke
CPT/HCPCS: 96376 ×3; 96361 ×3; 96374; 99285; 36415; 93005; 86900; 86901; 87338; 80053 ×2; 80048 ×2; 85652; 82550; 83605; 83690; 83735 ×2; 84484; 85025 ×4; 85610; 85730; 86850; 86140; 82272; 87324; 87045; 87046; 87635; 71045; 74018; 74176; G0378 ×4; C9113 ×3

== ENCOUNTER 2021-11-18 09:48 | Day surgery (SDC) | payer MEDICARE ==
[2021-11-15 10:46] VITALS: BMI 30.8
[2021-11-18] MEDS ORDERED: SODIUM CHLORIDE 0.9% 1,000 ML IV ONE (10:00)
[2021-11-18] MEDS ORDERED: LIDOCAINE 1% INJ 10MG/ML (20 ML MDV) ONE ×2 (11:16→11:30)
[2021-11-18] MEDS ORDERED: ONDANSETRON 4 MG/2 ML VIAL ONE (11:30)
[2021-11-18] MEDS ORDERED: PROPOFOL 10 MG/ML 20 ML VIAL IV ONE (11:30)
[2021-11-18] MEDS ORDERED: PROTAMINE SULFATE 10 MG/ML 5 ML VIAL IV ONE (11:30)
[2021-11-18] MEDS ORDERED: fentaNYL (PF) 50 MCG/ML 2 ML AMP ONE (11:30)
[2021-11-18] MEDS ORDERED: ISOPROTERENOL 250 MCG/1.25 ML SYR IV ONE (11:30)
[2021-11-18] MEDS ORDERED: PHENYLEPHRINE-0.9% NACL SYG 1,000 MCG/10 ML SYRINGE ONE (11:30)
[2021-11-18] MEDS ORDERED: SUCCINYLCHOLINE CHLORIDE 100 MG/5 ML SYR IV ONE (11:30)
[2021-11-18] MEDS ORDERED: HEPARIN SODIUM,PORCINE 10,000 UNIT/ML 1 ML VIAL ONE (11:30)
[2021-11-18] MEDS ORDERED: HYDROmorphone (PF) 1 MG/ML ONE (11:30)
[2021-11-18] MEDS ORDERED: MIDAZOLAM 2 MG/2 ML VIAL ONE (11:30)
[2021-11-18] MEDS ORDERED: ePHEDrine 50 MG/ML 1 ML AMP ONE (11:30)
[2021-11-18] MEDS ORDERED: LIDOCAINE 1% INJ 10MG/ML (20 ML MDV) SQ ONE (12:03)
[2021-11-18] MEDS ORDERED: HEPARIN SOD,PORK IN 0.45% NACL 25,000 UNIT in 0.45% NACL 1 250ML.BAG IV ONE (12:05)
[2021-11-18] MEDS ORDERED: IOPAMIDOL-370 100ML BTL INJ ONE (13:46)
--- NOTE | 2021-11-18 14:40 | P.HPCAR ---
History of Present Illness This is Dr. Ashley dictating an H/P on this patient The patient was interviewed and examined IMPRESSION / ASSESSMENT: Persistent atrial fibrillation History of atrial flutter Runs of atrial fibrillation on dofetilide, associated with palpitations PLAN: Pulmonary vein isolation and left atrial septal ablation for persistent atrial fibrillation despite being on dofetilide 150 g twice daily HPI Patient is to complete palpitations and documented paroxysms of A. fib on dofetilide Past history of coronary artery disease status post coronary artery bypass grafting in 2003 Hypertension, type 2 diabetes, dyslipidemia ROS: No fever chills or rigors, no cough, phlegm or expectoration, no nausea, vomiting or diarrhea, no hematuria, dysuria, no musculoskeletal complaints, no strokes or seizures, no skin lesions. EXAMINATION: 98.1F pulse rate in the 60s blood pressure 129/76. His mercury Breath sounds normal no rhonchi no crackles Heart sounds are regular No JVD No extremity edema Soft abdomen REVIEW OF LABS, ECG & MEDICAL DATA Coronavirus not detected Physical Exam Vitals: Vital Signs Temp Pulse Resp BP Pulse Ox 11/18/21 10:26 98.1 F 68 16 129/76 98 Intake and Output 11/17/21 11/18/21 11/18/21 22:59 06:59 14:59 Intake Total 478 Balance 478 Intake: IV 478 Other: Weight 100 kg Past Medical History Past Medical History: Atrial Fibrillation, Atrial Flutter, Coronary Artery Disease (CAD), Chest Pain / Angina, Hearing Disorder / Deafness, Hyperlipidemia, Myocardial Infarction (HI), Osteoarthritis (OA), Skin Disorder, Sleep Apnea/ CPAP/BIPAP Additional Past Medical History / Comment(s): Rt eye "droopy," hx kidney stones, hearing loss Rt ear. DDD, Spinal stenosis, 3 herniated discs. No CPAP used currently, ulcerative colitis, rash groin area ongoing Last Myocardial Infarction Date:: 2005 History of Any Multi-Drug Resistant Organisms: None Reported Past Surgical History: Adenoidectomy, Cardiac Ablation, Coronary Bypass/CABG, Heart Catheterization, Hernia Repair, Orthopedic Surgery, Tonsillectomy Additional Past Surgical History / Comment(s): cardiac ablation x 2, Sx as child for undescended testicle as child, CABG-triple bypass, RT shoulder tendon surg, Umbilical hernia. Rt cataract, Rt eyelid surgery Past Anesthesia/Blood Transfusion Reactions: Previous Problems w/ Anesthesia Additional Past Anesthesia/Blood Transfusion Reaction / Comment(s): States "wakes up in surgery". Smoking Status: Former smoker - Past Family History Father Family Medical History: Cancer Additional Family Medical History / Comment(s): . Sister(s) Family Medical History: Myocardial Infarction (HI) Additional Family Medical History / Comment(s): AGE 43 FROM [place] Brother(s) Family Medical History: Coronary Artery Disease (CAD), CVA/TIA, Myocardial Infarction (HI) Additional Family Medical History / Comment(s): AGE 42 HAD STROKE, AGE 45 HAD TRIPLE BYPASS Physical Examination Vital Signs Temp Pulse Resp BP Pulse Ox 11/18/21 10:26 98.1 F 68 16 129/76 98 Intake and Output 11/17/21 11/18/21 11/18/21 22:59 06:59 14:59 Intake Total 478 Balance 478 Intake: IV 478 Other: Weight 100 kg Results Current Medications Generic Name Dose Route Start Last Admin Trade Name Freq PRN Reason Stop Dose Admin Sodium Chloride 1,000 mls @ 20 mls/hr 11/18/21 06:52 Saline 0.9% IV 12/18/21 06:53 .Q24H MARLEN Lactated Ringer's 1,000 mls @ 20 mls/hr 11/18/21 06:52 Lactated Ringers IV 12/18/21 06:53 .Q24H MARLEN Intake and Output 11/17/21 11/18/21 11/18/21 22:59 06:59 14:59 Intake Total 478 Balance 478 Intake: IV 478 Other: Weight 100 kg Patient Weight 11/19/21 06:59 Weight 100 kg
[2021-11-18] MEDS ORDERED: ACETAMINOPHEN IV (For NPO) 1,000 MG in EMPTY BAG 1 BAG IVPB ONE (14:41)
--- NOTE | 2021-11-18 14:51 | P.EPPROC ---
- EP Procedure Note Electrophysiology Procedure Note: PROCEDURE A. fib ablation, for persistent A. fib on dofetilide PVI plus septal ablation planned DIAGNOSIS Atrial fibrillation, symptomatic, refractory to therapy, persistent RESULT No left atrial appendage mass seen on intracardiac echo, preserved LV systolic function Successful A. fib ablation/pulmonary vein isolation of all veins using cryo- ablation Complete entrance block in all 4 veins confirmed Left atrial septal ablation No evidence for phrenic nerve injury Esophageal deflection YES PROCEDURE DETAILS Patient was brought to the EP lab in a fasting state after obtaining written informed consent. Procedure performed under general anesthesia Esophagus was intubated. Esophageal temperature monitoring with circa catheter. Esophageal deflection with an endoscope to avoid hypothermia of the esophagus. After initial muscle relaxant use, muscle relaxants were not given thereafter in order to assess phrenic nerve during procedure. Patient prepped and draped as per protocol Cryo ablation-set up with standard preparation of the cryoablation tools done. Femoral Venous access obtained on the right and left groins and sheaths placed Diagnostic catheters for the high right atrium, phrenic nerve stimulation and pacing, His bundle, coronary sinus placed Intracardiac echo catheter placed. Long sheath placed in the right atrium Left and right transseptal catheterization performed under intracardiac echo guidance. Intravenous heparin with aCT above 300 Later, catheter positioning and balloon positioning in the left atrium and pulmonary veins, under intracardiac echo guidance Diagnostic EP study with coronary sinus pacing and recording Baseline measurements: Sinus cycle length 105 100 ms, SD interval 168 ms, QRS 99 and QT interval 430 ms AH 63, HV 60 AV node Wenckebach block less than 260 ms on Isuprel Extrastimulation Isuprel, atrial ERP 500/280 ms Transseptal catheterization performed RA pressure 14/7/11 LA pressure 24/4/14 Transseptal catheterization performed with standard sheath. The cryoablation sheath was then placed with an over the wire exchange without any acute complications. The cryoablation balloon was placed in the office of each pulmonary vein and all 4 pulmonary veins were isolated. IV dye was injected to confirm occlusion. Goal: achieve complete occlusion of the pulmonary vein, achieve -30 degrees C at 30 seconds and achieve -40 degrees C at 60 seconds and a time to effect of less than 60 seconds. If not, the balloon was repositioned to obtain this result After completion of Cryoblation with durations from 180-240 seconds, entrance block was confirmed with the Attain circular catheter in a roving fashion around the antrum of the pulmonary veins Phrenic nerve pacing was performed from the SVC, right innominate vein area and diaphragm voltage was monitored. Diaphragmatic contractions were also monitored manually for strength of contraction. At the end of the procedure the Achieve catheter was once again used to check for entrance block Phrenic nerve stimulation was performed to confirm diaphragmatic stimulation the end of the procedure Cine fluoroscopy was performed at the very end of the procedure to confirm movement of both diaphragms with inspiration and expiration Cryoablation was performed along the antrum of the right-sided veins in between the 2 pulmonary veins good temperature is achieved Good overlap between the right superior and right inferior ablations Sravanthi completely quiescent This procedure took a longer time than usual The left superior as well as the left inferior pulmonary veins were low and extremity posterior The left atrial appendage is large and [facility] this vein Under intracardiac echo guidance, the catheter was placed in the left superior vein. This is a very large vein After 3 minutes of Cryoblation, a repeat ablation was performed closer to the antrum, outside the pulmonary vein to perform an anterolateral isolation The left inferior vein was also difficult to access because of an extremely posterior position Multiple attempts were made provide complete occlusion and successful ablation The right inferior vein was also very difficult to access and occlude A hockey stick method was then finally used to achieve complete occlusion and a minute cryoablation was performed with complete isolation At the end of the procedure the patient was extubated Venous sheaths were removed and hemostasis assured with a closure device PROCEDURES PERFORMED Diagnostic EP study CS pacing and recording Left and right transseptal catheterization Catheter the mapping of the tachycardia Intracardiac echocardiography Pulmonary vein isolation with transseptal and comprehensive EPS, [id number] Drug infusion, [id number] Left atrial septal ablation, left atrium, [id number] Difficult procedure, extended procedure
[2021-11-18] MEDS: LACTATED RINGERS 1,000 ML IV SCH (17:27)
[2021-11-18] MEDS: SODIUM CHLORIDE 0.9% 1,000 ML IV SCH (17:27)
[2021-11-18] MEDS: DOFETILIDE 250 MCG CAP PO SCH (20:51)
[2021-11-18] MEDS ORDERED: ASPIRIN 81 MG PO SCH (21:00)
[2021-11-18] MEDS ORDERED: METOPROLOL SUCCINATE (ER) 50 MG TAB.ER.24H PO SCH (21:00)
[2021-11-18] MEDS ORDERED: ATORVASTATIN 80 MG TAB PO SCH (21:00)
[2021-11-18] MEDS ORDERED: MAGNESIUM OXIDE 400 MG TAB PO SCH (21:00)
[2021-11-18] MEDS ORDERED: RIVAROXABAN 20 MG TAB PO SCH (21:00)
[2021-11-18] MEDS: ACETAMINOPHEN TAB 325 MG TAB PO PRN (21:02)
[2021-11-19 04:27] VITALS: PULSE 68; TEMP 97.9
[2021-11-19 07:32] VITALS: BP 107/69; RESP 19
[2021-11-19] MEDS: LACTATED RINGERS 1,000 ML IV SCH (08:14)
[2021-11-19] MEDS: SODIUM CHLORIDE 0.9% 1,000 ML IV SCH (08:14)
[2021-11-19] MEDS: DOFETILIDE 250 MCG CAP PO SCH (08:15)
[2021-11-19] MEDS: ACETAMINOPHEN TAB 325 MG TAB PO PRN (08:43)
[2021-11-19] MEDS ORDERED: FENOFIBRATE 160 MG TAB PO SCH (09:00)
[2021-11-19] MEDS ORDERED: SPIRONOLACTONE 25 MG TAB PO SCH (09:00)
[2021-11-19] MEDS ORDERED: VALSARTAN 80 MG TAB PO SCH (09:00)
== END 2021-11-19 11:14 | disposition home or self-care (01) ==
LOC: CATHEP 09:48 → 6NMEDSUR 14:08 → CATHEP 11-19 11:14
PROVIDERS: ATTEND Internal Medicine Clinical Cardiac Electrophysiology
DX: I48.19 Other persistent atrial fibrillation (principal); I10 Essential (primary) hypertension; I25.10 Atherosclerotic heart disease of native coronary artery without angina pectoris; E11.9 Type 2 diabetes mellitus without complications; Z20.822 Contact with and (suspected) exposure to COVID-19
CPT/HCPCS: 93623; 93656; 93657; 87635; C1894 ×2; C1769 ×4; C1760; C1730 ×2; C1759; C1893; C1733; C1766; J2001; J0131; Q9967; J1644

== ENCOUNTER → 2023-11-16 | Outpatient (CLI) | payer MEDICARE ==
[2023-11-17 02:49] LABS: ALT 30 U/L (10-49); AST 32 U/L (14-35); Albumin 4.4 g/dL (3.8-4.9); Albumin/Globulin Ratio 1.91 Ratio (1.60-3.17); Alkaline Phosphatase 45 U/L (41-126); BUN/Creat Ratio 21.67 Ratio (12.00-20.00); Blood Urea Nitrogen 19.5 mg/dL (9.0-27.0); Calcium 10.5 mg/dL (8.7-10.3); Carbon Dioxide 24.3 mmol/L (21.6-31.8); Chloride 101 mmol/L (96-109); Chol/HDL Ratio 4.89 Ratio; Globulin 2.3 g/dL (1.6-3.3); Glucose 86 mg/dL (70-110); LDL Cholesterol,Calculated 84.1 mg/dL (0.0-131.0); Sodium 135 mmol/L (135-145); Total Bilirubin 0.6 mg/dL (0.3-1.2); Total Protein 6.7 g/dL (6.2-8.2)
== END | disposition home or self-care (01) ==
LOC: LABWHC1 15:23
PROVIDERS: ATTEND Internal Medicine Interventional Cardiology
DX: E78.2 Mixed hyperlipidemia (principal)
CPT/HCPCS: 36415; 80053; 80061